=== PATIENT | male | born 1975 | race Caucasian/White ===

== ENCOUNTER 2017-06-30 10:54 | Observation (INO) | payer MEDICARE ==
[2017-06-30] MEDS ORDERED: Lactated Ringers 1,000 ML IV ONE ×4 (11:19→12:06)
[2017-06-30] MEDS ORDERED: Zofran 4 MG/2 ML VIAL IV ONE ×2 (11:26→12:09)
[2017-06-30] MEDS ORDERED: Sodium Chloride 0.9% 1000 ML 1,000 ML IV STA (11:26)
[2017-06-30] MEDS ORDERED: Pepcid 20 MG VIAL IV ONE ×2 (11:27→11:46)
[2017-06-30] MEDS ORDERED: SUBLIMAZE 100 MCG/2 ML IV ONE ×2 (11:27→12:09)
[2017-06-30] MEDS ORDERED: Zofran 4 MG/2 ML VIAL ONE ×2 (11:34→12:18)
[2017-06-30 11:35] LABS: BASOPHIL % 0.2 % (0.0-0.4); Basophil (Absolute #) 0.04 (0-0.4); Eosinophil % 1.2 % (0.00-5.0); Eosinophil (Absolute #) 0.19 (0-0.5); Granulocyte Absolute (ANC) 12.14 (1.4-6.9); Granulocytes % 74.2 % (36.0-66.0); Hemoglobin 15.9 gm/dl (12.5-18.0); Lymphocytes % 15.9 % (24.0-44.0); Mean Corpuscular Hemoglobin 30.5 pg (26-32); Mean Corpuscular Hgb Concent. 33.1 g/dl (32-36); Mean Platelet Volume 10.6 fl (6-9.5); Monocyte (Absolute #) 1.39 (0.0-1.3); Monocytes % 8.5 % (0.0-12.0); Platelet Count 222 K/mm3 (150-450); Red Blood Count 5.22 M/mm3 (4.1-5.6); Red Cell Distribution Width 12.6 % (11.5-14.0); White Blood Count 16.4 K/mm3 (4.0-10.5)
[2017-06-30] MEDS ORDERED: SUBLIMAZE 100 MCG/2 ML ONE ×2 (11:35→12:18)
[2017-06-30 11:41] LABS: Lactic Acid 2.2 (0.4-2.0)
[2017-06-30] MEDS ORDERED: Sodium Chloride 0.9% 1000 ML 1,000 ML ONE (11:46)
--- NOTE | 2017-06-30 12:05 | ERPHSYRPT ---
- History of Present Illness Time Seen by Provider: 06/30/17 11:11 Source: patient, family (girlfriend) Patient Subjective Stated Complaint: abd pain and vomitting. Triage Nursing Assessment: to er c/o lower abd pain vomitting and chills pt arrives diaphoretic weak and shaking. pt arousable and oriented x 3 though very fatiqued. pt has tenderness noted to right lq Physician History: CC: vomiting Hx: 42 y/o patient with prior appendectomy and bipolar disorder for which he sees a psychiatrist but refuses to take medications. He reports brief right testicle pain a few weeks ago which resolved. No injury. 2 days ago had right testicle pain, severe, radiating to his abdomen. He has vomiting since yesterday. Pain and vomiting is severe. No fever. Sweating. No diarrhea. Normal urination, no penile discharge. No back pain. Takes marijuana but denies other drug use. Vomiting is severe. Timing/Duration: day(s) (2) Severity: severe - Review of Systems Constitutional: Malaise, Weakness, No Fever, No Chills Eyes: No Symptoms Ears, Nose, & Throat: No Symptoms Respiratory: No Cough, No Dyspnea Cardiac: No Chest Pain Abdominal/Gastrointestinal: Abdominal Pain, Nausea, Vomiting, No Diarrhea Genitourinary Symptoms: Testicle Pain (right), No Dysuria Musculoskeletal: No Back Pain Skin: Other (sweating), No Rash Neurological: No Headache All Other Systems: Reviewed and Negative - Past Medical History Pertinent Past Medical History: Yes Psycho-Social History: Bipolar Other Medical History: bipolar - Past Surgical History Past Surgical History: Yes Gastrointestinal: Appendectomy - Social History Smoking Status: Never smoker Drug Use: marijuana - Nursing Vital Signs Nursing Vital Signs: Initial Vital Signs Temperature 96.0 F 06/30/17 11:13 Pulse Rate 56 L 06/30/17 11:13 Respiratory Rate 14 06/30/17 11:13 Blood Pressure 138/93 06/30/17 11:13 O2 Sat by Pulse Oximetry 99 06/30/17 11:13 Pain Scale Pain Intensity 0 - Physical Exam General Appearance: alert, other (diaphoretic, uncomfortable, vomiting, ill appearing) Eye Exam: PERRL/EOMI Ears, Nose, Throat Exam: normal ENT inspection, moist mucous membranes Neck Exam: normal inspection, non-tender, supple, No meningismus Respiratory Exam: normal breath sounds Cardiovascular Exam: regular rate/rhythm, bradycardia Gastrointestinal/Abdomen Exam: soft, tenderness (diffuse lower, nondistended), guarding Male Genitalia Exam: testicular tenderness (right), other (no discharge, no hernia palpable), No penile discharge Extremity Exam: normal inspection, normal range of motion Neurologic Exam: alert, oriented x 3, cooperative, director operations broadcast II-XII nml as tested, sensation nml, No motor deficits Skin Exam: other (cool and dipahoretic) SpO2 Interpretation: normal SpO2: 99 Oxygen Delivery: Room Air - Course Nursing assessment & vital signs reviewed: Yes EKG Interpreted by Me: RATE (56), Sinus Raheel (with sinus arryhtmia), NORMAL AXIS, NORMAL INTERVALS (QTc 431), Right Bundle Branch Block - CT Exams abd/pelvis CT Interpretation: Tele-radiologist Report (liver and right renal cysts, no inguinal hernia, no acute abdominal pathology.) - Radiology Ultrasound Exam scrotal Ultrasound: tele radiology report (no torsion, inguinal right hernia with loop of bowel in right scrotum) Ordered Tests: Active Orders 24 hr Category Date Time Status Clean Catch Urine Specimen STAT Care 06/30/17 11:26 Active EKG-ER Only STAT Care 06/30/17 11:26 Active Gastric Tube Insertion STAT Care 06/30/17 12:51 Active IV Insertion STAT Care 06/30/17 11:26 Active NPO (ED) STAT Care 06/30/17 11:26 Active ABDOMEN AND PELVIS W CONTRAST [CT] Stat Exams 06/30/17 11:26 Completed TESTICLE [US] Stat Exams 06/30/17 11:47 Completed BLOOD CULTURE Stat Lab 06/30/17 11:45 Received CBC W DIFF Stat Lab 06/30/17 11:20 Completed CMP Stat Lab 06/30/17 11:20 Completed LIPASE Stat Lab 06/30/17 11:20 Completed Lactic Acid Stat Lab 06/30/17 11:38 Completed Lactic Acid Stat Lab 06/30/17 13:40 Ordered UA W/RFX UR CULTURE Stat Lab 06/30/17 13:45 Received Urine Triage Profile Stat Lab 06/30/17 13:45 Received Medication Summary Generic Name Dose Route Start Last Admin Trade Name Freq PRN Reason Stop Dose Admin Lactated Ringer's 1,000 mls @ 100 mls/hr 06/30/17 12:30 Lactated Ringers IV 07/30/17 12:29 .Q10H SANTA Discontinued Medications Generic Name Dose Route Start Last Admin Trade Name Raymond MENDEZ Reason Stop Dose Admin Famotidine 20 mg 06/30/17 11:27 06/30/17 11:48 Pepcid 20 Mg Vial IV 06/30/17 11:28 20 mg STAT ONE Administration Famotidine Confirm 06/30/17 11:46 Pepcid 20 Mg Vial Administered 06/30/17 11:47 Dose 20 mg IV .STK-MED ONE Fentanyl Citrate 50 mcg 06/30/17 11:27 06/30/17 11:42 Sublimaze 100 Mcg/2 Ml IV 06/30/17 11:28 50 mcg STAT ONE Administration Fentanyl Citrate Confirm 06/30/17 11:35 Sublimaze 100 Mcg/2 Ml Administered 06/30/17 11:36 Dose 100 mcg .ROUTE .STK-MED ONE Fentanyl Citrate 50 mcg 06/30/17 12:09 06/30/17 12:20 Sublimaze 100 Mcg/2 Ml IV 06/30/17 12:10 50 mcg STAT ONE Administration Fentanyl Citrate Confirm 06/30/17 12:18 Sublimaze 100 Mcg/2 Ml Administered 06/30/17 12:19 Dose 100 mcg .ROUTE .STK-MED ONE Haloperidol Lactate 5 mg 06/30/17 13:30 06/30/17 13:47 Haldol 5 Mg IM 06/30/17 13:31 5 mg STAT ONE Administration Haloperidol Lactate Confirm 06/30/17 13:46 Haldol 5 Mg Administered 06/30/17 13:47 Dose 5 mg .ROUTE .STK-MED ONE Lactated Ringer's Confirm 06/30/17 11:19 Lactated Ringers Administered 06/30/17 11:20 Dose 1,000 mls @ ud IV .STK-MED ONE Lactated Ringer's Confirm 06/30/17 11:20 Lactated Ringers Administered 06/30/17 11:21 Dose 1,000 mls @ ud IV .STK-MED ONE Lactated Ringer's 1,000 mls @ 999 mls/hr 06/30/17 11:27 Lactated Ringers IV 06/30/17 12:27 .Q1H1M ONE Sodium Chloride 1,000 mls @ 999 mls/hr 06/30/17 11:26 06/30/17 11:48 Sodium Chloride 0.9% 1000 Ml IV 06/30/17 12:26 999 mls/hr .Q1H1M STA Administration Sodium Chloride Confirm 06/30/17 11:46 Sodium Chloride 0.9% 1000 Ml Administered 06/30/17 11:47 Dose 1,000 mls @ ud .ROUTE .STK-MED ONE Ondansetron HCl 4 mg 06/30/17 11:26 06/30/17 11:42 Zofran 4 Mg/2 Ml Vial IV 06/30/17 11:27 4 mg STAT ONE Administration Ondansetron HCl Confirm 06/30/17 11:34 Zofran 4 Mg/2 Ml Vial Administered 06/30/17 11:35 Dose 4 mg .ROUTE .STK-MED ONE Ondansetron HCl 4 mg 06/30/17 12:09 06/30/17 12:20 Zofran 4 Mg/2 Ml Vial IV 06/30/17 12:10 4 mg STAT ONE Administration Ondansetron HCl Confirm 06/30/17 12:18 Zofran 4 Mg/2 Ml Vial Administered 06/30/17 12:19 Dose 4 mg .ROUTE .STK-MED ONE Lab/Rad Data: Laboratory Result Diagrams 06/30/17 11:20 06/30/17 11:20 Laboratory Results 06/30/17 06/30/17 06/30/17 Range/Units 11:38 11:20 11:20 WBC 16.4 H (4.0-10.5) K/mm3 RBC 5.22 (4.1-5.6) M/mm3 Hgb 15.9 (12.5-18.0) gm/dl Hct 48.0 (42-50) % MCV 92.0 (78-100) fl MCH 30.5 (26-32) pg MCHC 33.1 (32-36) g/dl RDW 12.6 (11.5-14.0) % Plt Count 222 (150-450) K/mm3 MPV 10.6 H (6-9.5) fl Gran % 74.2 H (36.0-66.0) % Lymphocytes % 15.9 L (24.0-44.0) % Monocytes % 8.5 (0.0-12.0) % Eosinophils % 1.2 (0.00-5.0) % Basophils % 0.2 (0.0-0.4) % Basophils # 0.04 (0-0.4) Sodium 141 (136-145) mEq/L Potassium 4.7 (3.5-5.1) mEq/L Chloride 104 (98-107) mEq/L Carbon Dioxide 24.8 (21-32) mEq/L Anion Gap 17.0 H (5-15) MEQ/L BUN 12 (9-20) mg/dL Creatinine 1.22 (0.55-1.30) mg/dl Estimated GFR > 60 ML/MIN Glucose 178 H (70-110) MG/DL Lactic Acid 2.2 H (0.4-2.0) Calcium 9.6 (8.5-10.1) mg/dL Total Bilirubin 0.50 (0.2-1.0) mg/dL AST 22 (15-37) U/L ALT 16 (12-78) U/L Alkaline Phosphatase 69 (46-116) U/L Serum Total Protein 8.5 H (6.4-8.2) gm/dL Albumin 4.9 (3.4-5.0) g/dL Lipase 86 (73-393) U/L - Progress Progress Note: 06/30/17 12:05 right AC IV started but had pulsatile flow so removed and pressure held. Good pulse thereafter. 18 ga PIV X 2 placed left arm with sono guidance. 06/30/17 12:46 LEft arm IV infiltrated. Right EJ placed 18 ga[address] En [address]. Suspect incarcerated hernia with bowel obstruction. Called Dr Jasmine office to obtain surgical consultation. 06/30/17 12:[address] Yomi Holley. He will be available. Advised NG tube and will call when CT competed. 06/30/17 13:25 Pt reports 15 or so prior episodes of vomiting like this. He has smoked marijuana for quite some time. Craves hot showers when these spells occur. He has been admitted in the past and no etiology identified. 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 Await CT. 06/30/17 13:[address] castro[address] CT reassuring. He will see for consult. Will speak to Dr Cruz for admission as he still has vomiting. 06/30/17 13:[address] Yaa Cruz electronic design engineer and will place in obs for IVF, further evaluation and care. 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 Pt was advised the treatment is completely stop marijuana. Discussed with Dr.: Harmony Will see patient in: hospital (observation) Counseled pt/family regarding: lab results, diagnosis, need for follow-up, rad results - Departure Time of Disposition: 13:56 Departure Disposition: Observation (Tele) Clinical Impression: Cyclical vomiting syndrome, Cannabis hyperemesis syndrome concurrent with and due to cannabis abuse Condition: Fair Critical Care Time: Yes Critical Care Time(excluding separately billable procedures): 30-74 minutes Referrals: DOCTOR,NO FAMILY [Primary Care Provider] -
[2017-06-30 12:15] LABS: ALBUMIN 4.9 g/dL (3.4-5.0); ALKALINE PHOSPHATASE 69 U/L (46-116); BLOOD UREA NITROGEN 12 mg/dL (9-20); CHLORIDE 104 mEq/L (98-107); Calcium 9.6 mg/dL (8.5-10.1); Carbon Dioxide 24.8 mEq/L (21-32); Creatinine 1 1.22 mg/dl (0.55-1.30); EST GLOMERULAR FILTRATION RATE > 60 ML/MIN; Glucose 178 MG/DL (70-110); LIPASE 86 U/L (73-393); Potassium 4.7 mEq/L (3.5-5.1); SGOT/AST 22 U/L (15-37); SGPT/ALT 16 U/L (12-78); SODIUM 141 mEq/L (136-145); Total Protein 8.5 gm/dL (6.4-8.2)
[2017-06-30] MEDS ORDERED: Lactated Ringers 1,000 ML IV SCH (12:30)
--- NOTE | 2017-06-30 12:41 | XRAY ---
Indication: Right testicular pain. Two-dimensional testicular sonogram performed. Comparison: None Both testicles homogeneous in echogenicity with normal color perfusion. The right testicle measures 5.4 x 4.3 x 2.2 cm and the left measures 5.6 x 3.5 x 3.0 cm. Right epididymis sonographically unremarkable. Left epididymis not imaged due to patient's "critical condition." Loop of bowel in the right scrotum. No other extratesticular mass or hydrocele. Impression: 1. Right inguinal hernia with loop of bowel in the right scrotum. 2. Left and right testicles negative for torsion or suspicious intratesticular mass.
--- NOTE | 2017-06-30 13:25 | XRAY ---
Indication: Lower abdominal pain. Vomiting. Possible hernia. Multiple contiguous axial images obtained through the abdomen and pelvis using 80 cc Isovue 370 contrast only. Comparison: None Lung bases demonstrates mild bibasilar dependent atelectasis. No infiltrate or effusion. Heart is not enlarged. Small hiatal hernia. Noncontrasted stomach and bowel loops appear nonobstructed. Previous reported appendectomy. No free fluid/air. 1.5 cm left lobe hepatic cyst. Smaller 6 mm right lobe peripheral hepatic cyst. Both kidneys enhance and excrete. 7 mm right renal cortical cyst. Remaining liver, gallbladder, pancreas, spleen, adrenal glands, kidneys, ureters, and bladder appear unremarkable. Minimal iliac artery calcifications bilaterally. No AAA or pathologic retroperitoneal lymphadenopathy. Osseous structures intact. No ventral or inguinal hernias. Impression: 1. Negative for ventral/inguinal hernias. 2. Hepatic and right renal cysts. 3. Small hiatal hernia. 4. No acute intra-abdominal/pelvic abnormalities. CT DI 17.30
[2017-06-30] MEDS ORDERED: Haldol 5 MG IM ONE (13:30)
[2017-06-30] MEDS ORDERED: Haldol 5 MG ONE (13:46)
[2017-06-30 14:05] LABS: Amphetamine,Urine NEG. (NEGATIVE); Barbiturate,Urine NEG. (NEGATIVE); Benzodiazepine,Urine NEG. (NEGATIVE); Cocaine,Urine NEG. (NEGATIVE); Methadone,Urine NEG. (NEGATIVE); Opiate,Urine NEG. (NEGATIVE); PCP,Urine NEG. (NEGATIVE); THC,Urine POS. (NEGATIVE)
[2017-06-30 14:06] LABS: Appearance CLEAR (CLEAR); Glucose 250 mg/dL (NEGATIVE); Leukocyte Esterase NEGATIVE (NEGATIVE); Nitrite NEGATIVE (NEGATIVE); Protein,Urine Dip TRACE (Negative); Specific Gravity 1.015 (1.005-1.025)
[2017-06-30 14:07] LABS: Bilirubin NEGATIVE (NEGATIVE); Blood NEGATIVE Ery/ul (0-5); Ketones LARGE-80 (NEGATIVE); Urobilinogen NORMAL mg/dL (0-1)
[2017-06-30 14:11] LABS: Bacteria MODERATE /HPF (NEGATIVE)
[2017-06-30] MEDS: D5W/0.45NS W/ 20mEq KCl 1000 ML 1,000 ML IV SCH (19:55)
[2017-06-30] MEDS ORDERED: Phenergan 25 MG INJ IV PRN (20:39)
[2017-06-30] MEDS ORDERED: BENADRYL 50 MG/ML IV PRN (21:08)
--- NOTE | 2017-06-30 21:36 | PCM.HP ---
History of Present Illness - Chief Complaint Chief Complaint: cannabis hyperemesis syndrome Date: 06/30/17 History of Present Illness: is a 42 year old male. who has been hospitalized he thinks 15 times with negative previous work up for severe vomiting and dehydration and developed this again 2 days ago. He has been unable to stop vomiting or keep anything down. He dues use marijuana and when this happens he does crave taking hot showers. He currently is very nauseated and diaphoretic but no significant abdominal pain currently. - Review of Systems Constitutional: Fatigue, Lethargy, No Fever, No Chills Eyes: No Symptoms Ears, Nose, & Throat: No Symptoms Respiratory: No Cough, No Short Of Breath Cardiac: No Chest Pain, No Edema, No Syncope Abdominal/Gastrointestinal: Abdominal Pain, Nausea, Vomiting, No Diarrhea Genitourinary Symptoms: No Dysuria Musculoskeletal: No Back Pain, No Neck Pain Skin: No Rash Neurological: No Dizziness, No Focal Weakness, No Sensory Changes Psychological: No Symptoms Endocrine: No Symptoms Hematologic/Lymphatic: No Symptoms Immunological/Allergic: No Symptoms Medications & Allergies Home Medications: Home Medication List No Reportable Medications [No Reported Medications] 06/30/17 [History Confirmed 06/30/17] - Past Medical History Past Medical History: Yes Neurological History: No Pertinent History ENT History: No Pertinent History Cardiac History: No Pertinent History Respiratory History: No Pertinent History Endocrine Medical History: No Pertinent History Musculoskelatal History: No Pertinent History GI Medical History: No Pertinent History History: No Pertinent History Pyscho-Social History: Bipolar Comment: bipolar - Past Surgical History Past Surgical History: Yes Neuro Surgical History: No Pertinent History Cardiac History: No Pertinent History Respiratory Surgery: No Pertinent History GI Surgical History: Appendectomy Genitourinary Surgical Hx: No Pertinent History Musculskeletal Surgical Hx: No Pertinent History Male Surgical History: No Pertinent History - Social History Smoking Status: Current some day smoker Alcohol: None Drug Use: marijuana - Physical Exam Vital Signs: Vital Signs - 24 hr Temp Pulse Resp BP Pulse Ox 06/30/17 20:00 98.5 F 86 22 156/87 94 L 06/30/17 15:54 97.7 F 57 L 18 147/74 98 06/30/17 15:45 97.7 F 57 L 16 147/74 98 06/30/17 15:24 57 L 16 130/54 98 06/30/17 13:57 99 06/30/17 13:31 73 16 149/87 98 06/30/17 12:30 60 18 138/98 96 06/30/17 11:13 96.0 F 56 L 14 138/93 99 General Appearance: mild distress, alert, other (diaphoretic) Neurologic Exam: alert, oriented x 3, cooperative, normal mood/affect, nml cerebellar function, nml station & gait, sensation nml, No motor deficits Eye Exam: PERRL/EOMI, eyes nml inspection Ears, Nose, Throat Exam: normal ENT inspection, TMs normal, pharynx normal, moist mucous membranes Neck Exam: normal inspection, non-tender, supple, full range of motion Respiratory Exam: normal breath sounds, lungs clear, No respiratory distress Cardiovascular Exam: normal heart sounds, normal peripheral pulses, bradycardia Gastrointestinal/Abdomen Exam: soft, No normal bowel sounds (hypoactive), No tenderness, No mass Back Exam: normal inspection, normal range of motion, No CVA tenderness, No vertebral tenderness Extremity Exam: normal inspection, normal range of motion, pelvis stable Skin Exam: normal color, warm, diaphoresis, No rash Lymphatic Exam: No adenopathy Assessment/Plan (1) Cannabis hyperemesis syndrome concurrent with and due to cannabis abuse Current Visit: Yes Status: Acute Assessment & Plan: will continue supportive care with iv fluids trial of phenergan and benadryl prn advance diet as tolerated Code(s): F12.188 - CANNABIS ABUSE WITH OTHER CANNABIS-INDUCED DISORDER (2) Dehydration Current Visit: Yes Status: Acute Code(s): E86.0 - DEHYDRATION
[2017-07-01] MEDS: D5W/0.45NS W/ 20mEq KCl 1000 ML 1,000 ML IV SCH (03:10)
[2017-07-01 06:15] LABS: BASOPHIL % 0.1 % (0.0-0.4); Basophil (Absolute #) 0.02 (0-0.4); Eosinophil % 0.1 % (0.00-5.0); Eosinophil (Absolute #) 0.01 (0-0.5); Granulocyte Absolute (ANC) 11.58 (1.4-6.9); Granulocytes % 81.1 % (36.0-66.0); Hematocrit 41.7 % (42-50); Hemoglobin 14.2 gm/dl (12.5-18.0); Lymphocyte (Absolute #) 1.46 (1.0-4.6); Lymphocytes % 10.2 % (24.0-44.0); Mean Cell Volume 89.5 fl (78-100); Mean Corpuscular Hemoglobin 30.5 pg (26-32); Mean Corpuscular Hgb Concent. 34.1 g/dl (32-36); Mean Platelet Volume 11.1 fl (6-9.5); Monocyte (Absolute #) 1.21 (0.0-1.3); Monocytes % 8.5 % (0.0-12.0); Platelet Count 181 K/mm3 (150-450); Red Blood Count 4.66 M/mm3 (4.1-5.6); Red Cell Distribution Width 12.2 % (11.5-14.0); White Blood Count 14.3 K/mm3 (4.0-10.5)
[2017-07-01 06:54] LABS: ALBUMIN 4.2 g/dL (3.4-5.0); ALKALINE PHOSPHATASE 62 U/L (46-116); ANION GAP 13.1 MEQ/L (5-15); BLOOD UREA NITROGEN 6 mg/dL (9-20); CHLORIDE 105 mEq/L (98-107); Carbon Dioxide 25.3 mEq/L (21-32); Creatinine 1 0.86 mg/dl (0.55-1.30); EST GLOMERULAR FILTRATION RATE > 60 ML/MIN; Glucose 145 MG/DL (70-110); Potassium 3.8 mEq/L (3.5-5.1); SGOT/AST 26 U/L (15-37); SGPT/ALT 18 U/L (12-78); SODIUM 140 mEq/L (136-145); Total Protein 7.6 gm/dL (6.4-8.2)
[2017-07-01 07:33] VITALS: BP 133/84; PULSE 78; O2SAT 98
--- NOTE | 2017-07-01 10:27 | PCM.DS ---
Discharge Summary Date of Admission: 06/30/17 15:35 Date of Discharge: 07/01/2017 Admitting Physician: ZINA RODRIGUEZ Primary Care Provider: NO FAMILY DOCTOR Allergies Allergies No Known Drug Allergies Allergy (Verified 06/30/17 23:49) Hospital Summary - Hospital Course Hospital Course: Mr. Nicholas presented with severe abdominal pain vomiting and dehydration with diaphoresis and bradycardia. Initially an ultrasound of the testicles was felt to show bowel loop but CT did not show any hernia. He was evaluated by surgery and determined not surgical candidate. He has had about 15 episodes similar to this in the past and when it happens he craves taking a hot shower and did this the day prior to admission until he ran out of water. He does admit to THC use but not on the day of presentation. He was admitted for presumed cannibis hyperemesis syndrome initially given im haldol then changed over to phenergan and benadryl iv and had iv fluids. He improved overnight and was tolerating po on hospital day 1 with no pain and just mild nausea. He was discharged to home with instructions to not smoke marijuana. - Vitals & Intake/Output Vital Signs: Vital Signs Temperature 98.9 F 07/01/17 07:32 Pulse Rate 78 07/01/17 07:32 Respiratory Rate 18 07/01/17 07:32 Blood Pressure 133/84 07/01/17 07:32 O2 Sat by Pulse Oximetry 98 07/01/17 07:32 Intake & Output: Intake & Output 06/28/17 06/29/17 06/30/17 07/01/17 11:59 11:59 11:59 11:59 Intake Total 1024 Output Total 250 Balance 774 Weight 78 kg - Lab Result Diagrams: 07/01/17 05:40 07/01/17 05:40 Lab Results-Last 24 Hrs: Lab Results-Last 24 Hours 07/01/17 07/01/17 Range/Units 05:40 05:40 WBC 14.3 H (4.0-10.5) K/mm3 RBC 4.66 (4.1-5.6) M/mm3 Hgb 14.2 (12.5-18.0) gm/dl Hct 41.7 L (42-50) % MCV 89.5 (78-100) fl MCH 30.5 (26-32) pg MCHC 34.1 (32-36) g/dl RDW 12.2 (11.5-14.0) % Plt Count 181 (150-450) K/mm3 MPV 11.1 H (6-9.5) fl Gran % 81.1 H (36.0-66.0) % Lymphocytes % 10.2 L (24.0-44.0) % Monocytes % 8.5 (0.0-12.0) % Eosinophils % 0.1 (0.00-5.0) % Basophils % 0.1 (0.0-0.4) % Basophils # 0.02 (0-0.4) Sodium 140 (136-145) mEq/L Potassium 3.8 (3.5-5.1) mEq/L Chloride 105 (98-107) mEq/L Carbon Dioxide 25.3 (21-32) mEq/L Anion Gap 13.1 (5-15) MEQ/L BUN 6 L (9-20) mg/dL Creatinine 0.86 (0.55-1.30) mg/dl Estimated GFR > 60 ML/MIN Glucose 145 H (70-110) MG/DL Calcium 9.0 (8.5-10.1) mg/dL Total Bilirubin 0.40 (0.2-1.0) mg/dL AST 26 (15-37) U/L ALT 18 (12-78) U/L Alkaline Phosphatase 62 (46-116) U/L Serum Total Protein 7.6 (6.4-8.2) gm/dL Albumin 4.2 (3.4-5.0) g/dL Discharge Exam General Appearance: no apparent distress, alert Neurologic Exam: alert, oriented x 3, cooperative, normal mood/affect, nml cerebellar function, sensation nml, No motor deficits Skin Exam: normal color, warm, dry Eye Exam: PERRL, EOMI, eyes nml inspection Ears, Nose, Throat Exam: normal ENT inspection, pharynx normal, moist mucous membranes Neck Exam: normal inspection, non-tender, supple, full range of motion Respiratory Exam: normal breath sounds, lungs clear, No respiratory distress Cardiovascular Exam: regular rate/rhythm, normal heart sounds Gastrointestinal/Abdomen Exam: soft, No tenderness, No mass Extremity Exam: normal inspection, normal range of motion Back Exam: normal inspection, normal range of motion, No CVA tenderness, No vertebral tenderness Male Genitalia Exam: deferred Rectal Exam: deferred Final Diagnosis/Problem List - Final Discharge Diagnosis/Problem (1) Cannabis hyperemesis syndrome concurrent with and due to cannabis abuse Status: Acute (2) Dehydration Status: Acute - Discharge Discharge Date: 07/01/17 Disposition: Home, Self-Care Condition: Fair Prescriptions: New Ondansetron ODT 4 MG [Zofran Odt 4 mg] 4 mg PO Q4H PRN #20 tab.rapdis PRN Reason: Nausea Instructions: Marijuana Use and Addiction (DC) Follow up with: DOCTOR,NO FAMILY [Primary Care Provider] - 1 Week
--- NOTE | 2017-07-03 09:32 | CONS ---
CONSULT DATE: 06/30/2017 HISTORY: A 42 year-old gentleman came in with significant nausea and vomiting. The emergency room physician said he seemed quite ill. He had an ultrasound show testicular flow with question of loop of bowel down towards the scrotum or inguinal canal. CT scan was ordered. I was asked to see the patient. On the way down there the CT did not show any obvious bowel obstruction or inguinal hernia requiring operation at this point. Discussed with the patient that he had these intermittent episodes in the past up to 15 times. After being hydrated he was feeling better at this point. He had some vague right-sided abdominal pain. He is not having any bulge down in his inguinal or scrotal area at this time. PAST MEDICAL HISTORY: He denied any chronic illnesses. PHYSICAL EXAMINATION: Appendectomy in the past. HOME MEDICATIONS: None on a regular basis. ALLERGIES: NKDA. FAMILY HISTORY: Negative for inflammatory bowel disease or Crohn's disease. SOCIAL HISTORY: He denies smoking cigarettes. He denies alcohol abuse. He smokes marijuana on occasion. REVIEW OF SYSTEMS: Twelve systems reviewed per admission assessment. No chest pain or palpitations other systems negative or noncontributory as above and per preadmission questionnaire. PHYSICAL EXAMINATION: ABDOMEN: Soft. He has some mild tenderness right abdomen. Bowel sounds stable. Healed appendectomy transverse incision in the right lower quadrant. No palpable hernia at this point. GENERAL: Currently no acute distress. HEENT: Sclera nonicteric. SKIN: Multiple tattoos. NECK: No JVD. CHEST: Equal excursion, nonlabored breathing. CVS: Rhythm and pulse. EXTREMITIES: No edema. NEURO: Alert, moving extremities grossly symmetrically. LAB DATA AND TESTS: Labs reviewed. CT scan reviewed with radiologist. Again no evidence of bowel obstruction, no free air or collection, no evidence of inguinal hernia on CT scan. IMPRESSION: Nausea, vomiting and some vague abdominal pain unclear etiology. He definitively does not have any current incarcerated or obstructing hernia at this time. The emergency room physician questioned whether he had hyperemesis syndrome as he had recurrent problems with this in the past possible etiology could include gastroenteritis versus viral syndrome, inflammatory bowel disease or even a variation of biliary colic although his symptoms seem to be lower initially when he was having discomfort. The significant other at the bedside reported he did have HIDA scan several years ago that showed ejection fraction at 30%. We do not have those reports available at this time. Either way no emergent general surgical intervention necessary at this time. Continue IV hydration and medical management. No acute surgery necessary at this time. Admitted to medical service and improves can be released. If he has recurrent symptoms could consider gallbladder work up as an outpatient. Otherwise no emergent surgical intervention necessary. Continue medical management at this time. I will call the floor and check on the patient tomorrow but at this time he does not need any emergent surgical intervention, continue medical management at this time.
== END 2017-07-01 10:54 | disposition home or self-care (01) ==
LOC: ED 10:54 → MED SURG 15:35
PROVIDERS: ADMIT Family Medicine; ATTEND Family Medicine
DX: F12.188 Cannabis abuse with other cannabis-induced disorder (principal); F19.20 Other psychoactive substance dependence, uncomplicated; E86.0 Dehydration; R10.9 Unspecified abdominal pain; F31.9 Bipolar disorder, unspecified; Z72.0 Tobacco use
CPT/HCPCS: 36000; 36415; 74177; 76870; 80053; 80307; 81000; 83605; 83690; 85025; 87040; 87086; 93005; 93268; 96360; 96361; 96372; 96374; 96375; 96376; 99291; G0378; J1630; J2405; J2550; J3010

== ENCOUNTER 2019-10-28 04:31 | Observation (INO) | payer MEDICARE ==
[2019-10-28] MEDS ORDERED: Sodium Chloride 0.9% 1000 ML 1,000 ML IV STA (04:58)
[2019-10-28] MEDS ORDERED: Zofran 4 MG/2 ML VIAL IV ONE (04:58)
[2019-10-28] MEDS ORDERED: SUBLIMAZE 250 MCG/5 ML IV ONE (05:00)
[2019-10-28] MEDS ORDERED: Zofran 4 MG/2 ML VIAL ONE (05:07)
[2019-10-28] MEDS ORDERED: SUBLIMAZE 250 MCG/5 ML ONE (05:08)
[2019-10-28] MEDS ORDERED: Sodium Chloride 0.9% 1000 ML 1,000 ML ONE ×2 (05:08)
[2019-10-28 05:13] LABS: Absolute Neutrophil Ct (ANC) 11.12 (1.4-6.9); BASOPHIL % 0.4 % (0.0-0.4); Basophil (Absolute #) 0.06 (0-0.4); Eosinophil % 1.1 % (0.00-5.0); Eosinophil (Absolute #) 0.15 (0-0.5); Hematocrit 44.1 % (42-50); Lymphocyte (Absolute #) 1.89 (1.0-4.6); Lymphocytes % 13.3 % (24.0-44.0); Mean Cell Volume 92.8 fl (78-100); Mean Corpuscular Hemoglobin 31.6 pg (26-32); Mean Platelet Volume 10.7 fl (7.5-11.0); Monocyte (Absolute #) 1.01 (0.0-1.3); Monocytes % 7.1 % (0.0-12.0); Neutrophil % 78.1 % (36.0-66.0); Platelet Count 208 K/mm3 (150-450); Red Blood Count 4.75 M/mm3 (4.1-5.6); Red Cell Distribution Width 12.6 % (11.5-14.0); White Blood Count 14.2 K/mm3 (4.0-10.5)
[2019-10-28 05:17] LABS: ALBUMIN 4.7 g/dL (3.5-5.0); ALKALINE PHOSPHATASE 77 U/L (38-126); AMYLASE 100 U/L (30-110); ANION GAP 11.2 MEQ/L (5-15); BLOOD UREA NITROGEN 11 mg/dL (9-20); CHLORIDE 111 mmol/L (98-107); Calcium 9.5 mg/dL (8.4-10.2); Carbon Dioxide 24 mmol/L (22-30); Creatinine 1 0.84 mg/dL (0.66-1.25); Glucose 169 mg/dL (74-106); LIPASE 78 U/L (23-300); Potassium 4.3 mmol/L (3.5-5.1); SGOT/AST 28 U/L (17-59); SGPT/ALT 14 U/L (0-50); SODIUM 141 mmol/L (137-145)
[2019-10-28] MEDS ORDERED: MORPHINE SULFATE 4 MG INJ IV ONE (05:55)
--- NOTE | 2019-10-28 05:55 | ERPHSYRPT ---
- History of Present Illness Time Seen by Provider: 10/28/19 04:46 Historian: patient, family Exam Limitations: no limitations Physician History: 44 years old male presented in the ER with sudden onset upper abdominal pain around 11 AM which woke him up from sleep associated with multiple episodes of nonprojectile, nonbilious vomiting with no hematemesis. Patient is d iaphoretic/sweating with heart rate in 40s, feeling very sleepy. Patient reports severe sharp shooting pain in the upper abdomen with no radiation, aggravated with movements, palpation and vomiting no relieving factors. Also reports mild shortness of breath and some chest discomfort because of vomiting. Denies any fever or chills. No diarrhea. Timing/Duration: hour(s) (5), sudden, worse Activities at Onset: sleep Quality: sharpness, stabbing Abdominal Pain Onset Location: RUQ, LUQ, epigastric, periumbilical Pain Radiation: no radiation Severity of Pain-Max: severe Severity of Pain-Current: severe Modifying Factors: Improves With: movement, palpation Associated Symptoms: nausea, vomiting, No fever/chills Previous symptoms: no prior history Allergies/Adverse Reactions: No Known Drug Allergies Allergy (Verified 06/30/17 23:49) Travel Risk - International Travel Have you traveled outside of the country in past 3 weeks: No If Yes, where;: N - Coronavirus Screening Are you exhibiting any of the following symptoms?: Yes Close contact with a COVID-19 positive Pt in past 14-21 Days: No - Review of Systems Constitutional: Fatigue, Lethargy Eyes: No Symptoms Ears, Nose, & Throat: No Symptoms Respiratory: No Symptoms Cardiac: No Symptoms Abdominal/Gastrointestinal: Abdominal Pain, Nausea, Vomiting Genitourinary Symptoms: No Symptoms Musculoskeletal: No Symptoms Skin: No Symptoms Neurological: No Symptoms Psychological: No Symptoms Endocrine: No Symptoms Hematologic/Lymphatic: No Symptoms Immunological/Allergic: No Symptoms - Past Medical History Pertinent Past Medical History: Yes Neurological History: No Pertinent History ENT History: No Pertinent History Cardiac History: No Pertinent History Respiratory History: No Pertinent History Endocrine Medical History: No Pertinent History Musculoskeletal History: No Pertinent History GI Medical History: No Pertinent History History: No Pertinent History Psycho-Social History: Bipolar Other Medical History: bipolar - Past Surgical History Past Surgical History: Yes Neuro Surgical History: No Pertinent History Cardiac: No Pertinent History Respiratory: No Pertinent History Gastrointestinal: Appendectomy Genitourinary: No Pertinent History Musculoskeletal: No Pertinent History Male Surgical History: No Pertinent History - Social History Smoking Status: Current some day smoker Drug Use: marijuana - Nursing Vital Signs Nursing Vital Signs: Initial Vital Signs Temperature 96 F 10/28/19 04:32 Pulse Rate 53 L 10/28/19 04:32 Respiratory Rate 16 10/28/19 04:32 Blood Pressure 133/84 10/28/19 04:32 O2 Sat by Pulse Oximetry 97 10/28/19 04:32 Pain Scale Pain Intensity 7 - Physical Exam General Appearance: moderate distress, alert Eye Exam: PERRL/EOMI, eyes nml inspection Ears, Nose, Throat Exam: normal ENT inspection, TMs normal, pharynx normal Neck Exam: normal inspection, non-tender, supple, full range of motion Respiratory Exam: normal breath sounds, lungs clear, No chest tenderness Cardiovascular Exam: normal heart sounds, bradycardia Gastrointestinal/Abdomen Exam: soft, tenderness, guarding (Her abdomen), No normal bowel sounds, No distention, No mass Back Exam: normal inspection, No CVA tenderness Extremity Exam: normal inspection Neurologic Exam: alert, oriented x 3, cooperative Skin Exam: normal color SpO2 Interpretation: normal O2 Delivery: Room Air - Course Nursing assessment & vital signs reviewed: Yes EKG Interpreted by Me: RATE, Sinus Raheel, NORMAL AXIS, NORMAL INTERVALS, Non- specific ST Changes Ordered Tests: Active Orders 24 hr Category Date Time Status EKG-ER Only STAT Care 10/28/19 04:58 Active IV Insertion STAT Care 10/28/19 04:58 Active NPO (ED) STAT Care 10/28/19 04:58 Active ABDOMEN AND PELVIS W CONTRAST [CT] Stat Exams 10/28/19 04:59 Taken CHEST WITH CONTRAST [CT] Stat Exams 10/28/19 05:01 Taken AMYLASE Stat Lab 10/28/19 04:58 Completed CBC W DIFF Stat Lab 10/28/19 04:58 Completed CMP Stat Lab 10/28/19 04:58 Completed LIPASE Stat Lab 10/28/19 04:58 Completed Lactic Acid Stat Lab 10/28/19 04:58 Completed TROPONIN Q3H Lab 10/28/19 05:00 Completed TROPONIN Q3H Lab 10/28/19 08:00 Ordered TROPONIN Q3H Lab 10/28/19 11:00 Ordered TROPONIN Q3H Lab 10/28/19 14:00 Ordered TROPONIN Q3H Lab 10/28/19 17:00 Ordered UA W/RFX UR CULTURE Stat Lab 10/28/19 04:59 Uncollected Urine Triage Profile Stat Lab 10/28/19 04:59 Uncollected Medication Summary Generic Name Dose Route Start Last Admin Trade Name Raymond PRN Reason Stop Dose Admin Piperacillin Sod/Tazobactam 100 mls @ 200 mls/hr 10/28/19 06:22 Sod 3.375 gm/ Sodium Chloride IV 10/28/19 06:51 STAT ONE Discontinued Medications Generic Name Dose Route Start Last Admin Trade Name Raymond PRN Reason Stop Dose Admin Fentanyl Citrate 50 mcg 10/28/19 05:00 10/28/19 05:11 Sublimaze 250 Mcg/5 Ml IV 10/28/19 05:01 50 mcg NOW ONE Administration Fentanyl Citrate Confirm 10/28/19 05:08 Sublimaze 250 Mcg/5 Ml Administered 10/28/19 05:09 Dose 250 mcg .ROUTE .STK-MED ONE Sodium Chloride 1,000 mls @ 999 mls/hr 10/28/19 04:58 10/28/19 05:09 Sodium Chloride 0.9% 1000 Ml IV 10/28/19 05:58 999 mls/hr .Q1H1M STA Administration Sodium Chloride Confirm 10/28/19 05:08 Sodium Chloride 0.9% 1000 Ml Administered 10/28/19 05:09 Dose 1,000 mls @ ud .ROUTE .STK-MED ONE Sodium Chloride Confirm 10/28/19 05:08 Sodium Chloride 0.9% 1000 Ml Administered 10/28/19 05:09 Dose 1,000 mls @ ud .ROUTE .STK-MED ONE Morphine Sulfate 4 mg 10/28/19 05:55 10/28/19 05:59 Morphine Sulfate 4 Mg Inj IV 10/28/19 05:56 4 mg STAT ONE Administration Morphine Sulfate Confirm 10/28/19 05:57 Morphine Sulfate 4 Mg Inj Administered 10/28/19 05:58 Dose 4 mg .ROUTE .STK-MED ONE Ondansetron HCl 4 mg 10/28/19 04:58 10/28/19 05:08 Zofran 4 Mg/2 Ml Vial IV 10/28/19 04:59 4 mg STAT ONE Administration Ondansetron HCl Confirm 10/28/19 05:07 Zofran 4 Mg/2 Ml Vial Administered 10/28/19 05:08 Dose 4 mg .ROUTE .STK-MED ONE Promethazine HCl 12.5 mg 10/28/19 06:17 Phenergan 25 Mg Inj IM 10/28/19 06:18 STAT ONE Promethazine HCl Confirm 10/28/19 06:20 Phenergan 25 Mg Inj Administered 10/28/19 06:21 Dose 25 mg .ROUTE .STK-MED ONE Lab/Rad Data: Laboratory Result Diagrams 10/28/19 04:58 10/28/19 04:58 Laboratory Results 10/28/19 10/28/19 10/28/19 Range/Units 05:00 04:58 04:58 WBC (4.0-10.5) K/mm3 RBC (4.1-5.6) M/mm3 Hgb (12.5-18.0) gm/dl Hct (42-50) % MCV (78-100) fl MCH (26-32) pg MCHC (32-36) g/dl RDW (11.5-14.0) % Plt Count (150-450) K/mm3 MPV (7.5-11.0) fl Gran % (36.0-66.0) % Eos # (Auto) (0-0.5) Absolute Lymphs (auto) (1.0-4.6) Absolute Monos (auto) (0.0-1.3) Lymphocytes % (24.0-44.0) % Monocytes % (0.0-12.0) % Eosinophils % (0.00-5.0) % Basophils % (0.0-0.4) % Absolute Granulocytes (1.4-6.9) Basophils # (0-0.4) Sodium 141 (137-145) mmol/L Potassium 4.3 (3.5-5.1) mmol/L Chloride 111 H (98-107) mmol/L Carbon Dioxide 24 (22-30) mmol/L Anion Gap 11.2 (5-15) MEQ/L BUN 11 (9-20) mg/dL Creatinine 0.84 (0.66-1.25) mg/dL Estimated GFR > 60.0 ML/MIN Glucose 169 H (74-106) mg/dL Lactic Acid 1.7 (0.4-2.0) Calcium 9.5 (8.4-10.2) mg/dL Total Bilirubin 0.50 (0.2-1.3) mg/dL AST 28 (17-59) U/L ALT 14 (0-50) U/L Alkaline Phosphatase 77 (38-126) U/L Troponin I < 0.012 (0.000-0.034) ng/mL Serum Total Protein 8.0 (6.3-8.2) g/dL Albumin 4.7 (3.5-5.0) g/dL Amylase 100 (30-110) U/L Lipase 78 (23-300) U/L 10/28/19 Range/Units 04:58 WBC 14.2 H (4.0-10.5) K/mm3 RBC 4.75 (4.1-5.6) M/mm3 Hgb 15.0 (12.5-18.0) gm/dl Hct 44.1 (42-50) % MCV 92.8 (78-100) fl MCH 31.6 (26-32) pg MCHC 34.0 (32-36) g/dl RDW 12.6 (11.5-14.0) % Plt Count 208 (150-450) K/mm3 MPV 10.7 (7.5-11.0) fl Gran % 78.1 H (36.0-66.0) % Eos # (Auto) 0.15 (0-0.5) Absolute Lymphs (auto) 1.89 (1.0-4.6) Absolute Monos (auto) 1.01 (0.0-1.3) Lymphocytes % 13.3 L (24.0-44.0) % Monocytes % 7.1 (0.0-12.0) % Eosinophils % 1.1 (0.00-5.0) % Basophils % 0.4 (0.0-0.4) % Absolute Granulocytes 11.12 H (1.4-6.9) Basophils # 0.06 (0-0.4) Sodium (137-145) mmol/L Potassium (3.5-5.1) mmol/L Chloride (98-107) mmol/L Carbon Dioxide (22-30) mmol/L Anion Gap (5-15) MEQ/L BUN (9-20) mg/dL Creatinine (0.66-1.25) mg/dL Estimated GFR ML/MIN Glucose (74-106) mg/dL Lactic Acid (0.4-2.0) Calcium (8.4-10.2) mg/dL Total Bilirubin (0.2-1.3) mg/dL AST (17-59) U/L ALT (0-50) U/L Alkaline Phosphatase (38-126) U/L Troponin I (0.000-0.034) ng/mL Serum Total Protein (6.3-8.2) g/dL Albumin (3.5-5.0) g/dL Amylase (30-110) U/L Lipase (23-300) U/L - Progress Progress: improved, pain not gone completely, re-examined Progress Note: 10/28/19 06:26 44 years old is evaluated for abdominal pain with vomiting. He is given IV fluid along with pain meds and antiemetic, on reevaluation patient is feeling better but pain is not completely improved. EKG showed sinus bradycardia but no ST elevations are depressions. Negative initial troponins. He has a white count of 14 and lactate of 1.7. With his presentation I have obtained CT abdomen and chest with contrast which showed diffuse colitis but no obstruction or perforation. I have started him on Zosyn. We will continue with hydration/antiemetics and I have discussed with Dr. Garzon, patient is accepted for admission. Discussed with : Jerome Will see patient in: hospital (observation) Counseled pt/family regarding: lab results, diagnosis, rad results, smoking cessation - Departure Departure Disposition: Observation Clinical Impression: Colitis, Intractable nausea and vomiting Condition: Fair Critical Care Time: Yes Critical Care Time(excluding separately billable procedures): Critical 30-74 mins Referrals: DOCTOR,NO FAMILY [Primary Care Provider] -
[2019-10-28] MEDS ORDERED: MORPHINE SULFATE 4 MG INJ ONE (05:57)
[2019-10-28] MEDS ORDERED: Phenergan 25 MG INJ IM ONE ×2 (06:17→06:25)
[2019-10-28] MEDS ORDERED: Phenergan 25 MG INJ ONE (06:20)
[2019-10-28] MEDS ORDERED: Zosyn 3.375 GM Vial 3.375 GM in Sodium Chloride 100ML MINI-BAG PLUS 100 ML IV ONE (06:22)
[2019-10-28] MEDS ORDERED: Zosyn 3.375 GM Vial IV ONE (06:30)
[2019-10-28] MEDS ORDERED: Sodium Chloride 100ML MINI-BAG PLUS 100 ML IV ONE (06:32)
[2019-10-28] MEDS ORDERED: PROTONIX 40 MG IV IV ONE ×2 (06:33→07:22)
[2019-10-28] MEDS ORDERED: Phenergan 25 MG INJ IM PRN (07:35)
[2019-10-28] MEDS ORDERED: MORPHINE SULFATE 4 MG INJ IV PRN (07:35)
[2019-10-28] MEDS: Lactated Ringers 1,000 ML IV SCH ×3 (09:16→23:33)
--- NOTE | 2019-10-28 09:21 | XRAY ---
Indication: Abdomen pain and emesis. Multiple contiguous axial images obtained through the chest using 100 cc Isovue 370 contrast. Comparison: None Lungs slightly degraded by respiration artifact especially near the lung bases. Mild bilateral dependent atelectasis, left upper lobe peripheral fibrosis/scarring, and mild bilateral upper lobe subpleural cystic changes. No suspicious pulmonary mass, infiltrate, or effusion. Heart is not enlarged. Aorta is normal in course and caliber. No pathologic mediastinal/hilar lymphadenopathy. Bony thorax intact. CT abdomen pelvis reported separately. Impression: Respiration artifact. Mild bilateral upper lobe subpleural cystic changes and left upper lobe fibrosis/scarring. Remaining CT chest with contrast exam is negative. Comment: Preliminary interpretation was made by C. No critical discrepancy.
[2019-10-28] MEDS: Zofran 4 MG/2 ML VIAL IV PRN ×3 (09:23→23:35)
--- NOTE | 2019-10-28 09:27 | XRAY ---
Indication: Abdomen pain and emesis. Multiple contiguous axial images obtained through the abdomen and pelvis using 100 cc Isovue 370 contrast. Comparison: None CT chest reported separately. Noncontrasted stomach and bowel loops appear nonobstructed. Previous reported appendectomy. No free fluid/air. Stable hepatic cysts again largest left lobe measuring 1.5 cm. Also stable subcentimeter right renal cortical cyst. Remaining liver, gallbladder, pancreas, spleen, adrenal glands, kidneys, ureters, bladder, and aorta appear unremarkable. There remains minimal biiliac artery calcifications. No pathologic retroperitoneal lymphadenopathy. Osseous structures intact. Impression: 1. Stable hepatic and right renal cysts. 2. Remaining CT abdomen/pelvis with contrast exam is negative. Comment: Preliminary interpretation was made by [facility] who reports diffuse colonic wall thickening which I do not appreciate as the colon is mostly decompressed/empty.
[2019-10-28 09:35] LABS: Appearance CLEAR (CLEAR); Bilirubin NEGATIVE (NEGATIVE); Blood NEGATIVE Ery/ul (0-5); Glucose 50 mg/dL (NEGATIVE); Ketones NEGATIVE (NEGATIVE); Leukocyte Esterase NEGATIVE (NEGATIVE); Mucus SLIGHT /HPF (NEGATIVE); Nitrite NEGATIVE (NEGATIVE); Protein,Urine Dip NEGATIVE (Negative); Specific Gravity 1.054 (1.005-1.025); Urobilinogen NEGATIVE mg/dL (0-1)
[2019-10-28 09:42] LABS: Amphetamine,Urine NEGATIVE (NEGATIVE); Barbiturate,Urine NEGATIVE (NEGATIVE); Benzodiazepine,Urine NEGATIVE (NEGATIVE); Cocaine,Urine NEGATIVE (NEGATIVE); Methadone,Urine NEGATIVE (NEGATIVE); Opiate,Urine POSITIVE (NEGATIVE); PCP,Urine NEGATIVE (NEGATIVE); THC,Urine POSITIVE (NEGATIVE)
[2019-10-28] MEDS: Zosyn 3.375 GM Vial 3.375 GM in Sodium Chloride 100ML MINI-BAG PLUS 100 ML IV SCH ×3 (12:00→23:36)
[2019-10-28] MEDS ORDERED: BENADRYL 50 MG/ML IV PRN (17:15)
[2019-10-28] MEDS ORDERED: Transderm Scop 1.5MG Patch TOP ONE (17:15)
--- NOTE | 2019-10-28 19:47 | PCM.HP ---
History of Present Illness - Chief Complaint Chief Complaint: Colitis History of Present Illness: is a 44 year old male pt with no PCP (sees Dr. Saini for psych meds ) who was admitted through ER with colitis, vomiting, and abd pain. It started at 11 a.m. yesterday with sharp, shooting pain in the epigastric area radiating to the suprapubic area with some diarrhea then vomiting. Vomiting has gone from green to brown in color. Pain was 10/10 at admission, now 8/10 but he is able to sleep for short periods of time (just received morphine). Per pt's SO he has had about 3-4 episodes like this in the past 11 years. He will get sweaty, disoriented, have abd pain/vomiting. He states it happened more when he was a child. He does not remember being tested for sickle cell anemia. Pt also c/o L CP and arm pain, "like a fist," lasting from moments to 30 sec, with SOB and diaphoresis, no palpitations. - Review of Systems Constitutional: Chills, Fatigue, Weakness Respiratory: Short Of Breath Cardiac: Chest Pain Abdominal/Gastrointestinal: Abdominal Pain, Nausea, Vomiting, Diarrhea, Appetite Changes Skin: Other (diaphoresis) Neurological: Dizziness, Other (some intermittent confusion) Psychological: Anxiety, Depression, No Suicidal Ideations All Other Systems: Reviewed and Negative Medications & Allergies Home Medications: Home Medication List No Reportable Medications [No Reported Medications] 10/28/19 [History Confirmed 10/28/19] Allergies/Adverse Reactions: Allergies Allergy/AdvReac Type Severity Reaction Status Date / Time No Known Drug Allergies Allergy Verified 06/30/17 23:49 - Past Medical History Past Medical History: Yes Neurological History: No Pertinent History ENT History: No Pertinent History Cardiac History: No Pertinent History Respiratory History: No Pertinent History Endocrine Medical History: No Pertinent History Musculoskelatal History: No Pertinent History GI Medical History: No Pertinent History History: No Pertinent History Pyscho-Social History: Bipolar Comment: bipolar - Past Surgical History Past Surgical History: Yes Neuro Surgical History: No Pertinent History Cardiac History: No Pertinent History Respiratory Surgery: No Pertinent History GI Surgical History: Appendectomy Genitourinary Surgical Hx: No Pertinent History Musculskeletal Surgical Hx: No Pertinent History Male Surgical History: No Pertinent History - Social History Smoking Status: Current every day smoker Exposure to second hand smoke: Yes Alcohol: None Drug Use: marijuana - Physical Exam Vital Signs: Vital Signs - 24 hr Temp Pulse Resp BP Pulse Ox 10/28/19 16:00 99 F 84 14 156/92 98 10/28/19 12:00 99.7 F 61 20 176/83 99 10/28/19 08:10 97 F 48 L 14 168/84 90 L 10/28/19 06:00 48 L 16 131/87 99 10/28/19 05:32 54 L 16 131/87 98 10/28/19 04:32 96 F 53 L 16 133/84 97 General Appearance: moderate distress, other (somnolent but wakes to touch or voice) Neurologic Exam: cooperative, No facial droop Eye Exam: eyes nml inspection Ears, Nose, Throat Exam: moist mucous membranes Neck Exam: normal inspection Respiratory Exam: normal breath sounds, lungs clear, No respiratory distress, No diminished breath sounds, No crackles/rales, No rhonchi, No wheezing Cardiovascular Exam: regular rate/rhythm, normal heart sounds, No murmur Gastrointestinal/Abdomen Exam: soft, normal bowel sounds, tenderness (throughout ), No distention, No mass, No guarding, No rebound Back Exam: normal inspection, No rash Extremity Exam: normal inspection, No pedal edema, No swelling Skin Exam: normal color, warm, dry, No rash Results - Labs Lab/Micro Results: Lab Results-Last 24 Hours 10/28/19 10/28/19 10/28/19 Range/Units 04:58 04:58 04:58 WBC 14.2 H (4.0-10.5) K/mm3 RBC 4.75 (4.1-5.6) M/mm3 Hgb 15.0 (12.5-18.0) gm/dl Hct 44.1 (42-50) % MCV 92.8 (78-100) fl MCH 31.6 (26-32) pg MCHC 34.0 (32-36) g/dl RDW 12.6 (11.5-14.0) % Plt Count 208 (150-450) K/mm3 MPV 10.7 (7.5-11.0) fl Gran % 78.1 H (36.0-66.0) % Eos # (Auto) 0.15 (0-0.5) Absolute Lymphs (auto) 1.89 (1.0-4.6) Absolute Monos (auto) 1.01 (0.0-1.3) Lymphocytes % 13.3 L (24.0-44.0) % Monocytes % 7.1 (0.0-12.0) % Eosinophils % 1.1 (0.00-5.0) % Basophils % 0.4 (0.0-0.4) % Absolute Granulocytes 11.12 H (1.4-6.9) Basophils # 0.06 (0-0.4) Sodium 141 (137-145) mmol/L Potassium 4.3 (3.5-5.1) mmol/L Chloride 111 H (98-107) mmol/L Carbon Dioxide 24 (22-30) mmol/L Anion Gap 11.2 (5-15) MEQ/L BUN 11 (9-20) mg/dL Creatinine 0.84 (0.66-1.25) mg/dL Estimated GFR > 60.0 ML/MIN Glucose 169 H (74-106) mg/dL Lactic Acid 1.7 (0.4-2.0) Calcium 9.5 (8.4-10.2) mg/dL Total Bilirubin 0.50 (0.2-1.3) mg/dL AST 28 (17-59) U/L ALT 14 (0-50) U/L Alkaline Phosphatase 77 (38-126) U/L Troponin I (0.000-0.034) ng/mL Serum Total Protein 8.0 (6.3-8.2) g/dL Albumin 4.7 (3.5-5.0) g/dL Amylase 100 (30-110) U/L Lipase 78 (23-300) U/L Urine Color (YELLOW) Urine Appearance (CLEAR) Urine pH (5-6) Ur Specific [place] (1.005-1.025) Urine Protein (Negative) Urine Ketones (NEGATIVE) Urine Blood (0-5) Daniel/ul Urine Nitrite (NEGATIVE) Urine Bilirubin (NEGATIVE) Urine Urobilinogen (0-1) mg/dL Ur Leukocyte Esterase (NEGATIVE) Urine WBC (Auto) (0-5) /HPF Urine RBC (Auto) (0-2) /HPF U Epithel Cells (Auto) (FEW) /HPF Urine Bacteria (Auto) (NEGATIVE) /HPF Urine Mucus (Auto) (NEGATIVE) /HPF Urine Culture Reflexed (NO) Urine Glucose (NEGATIVE) mg/dL Urine Opiates Level (NEGATIVE) Ur Methadone (NEGATIVE) Urine Barbiturates (NEGATIVE) Ur Phencyclidine (PCP) (NEGATIVE) Urine Amphetamine (NEGATIVE) U Benzodiazepine Level (NEGATIVE) Urine Cocaine (NEGATIVE) Urine Marijuana (THC) (NEGATIVE) 10/28/19 10/28/19 10/28/19 Range/Units 05:00 08:10 09:02 WBC (4.0-10.5) K/mm3 RBC (4.1-5.6) M/mm3 Hgb (12.5-18.0) gm/dl Hct (42-50) % MCV (78-100) fl MCH (26-32) pg MCHC (32-36) g/dl RDW (11.5-14.0) % Plt Count (150-450) K/mm3 MPV (7.5-11.0) fl Gran % (36.0-66.0) % Eos # (Auto) (0-0.5) Absolute Lymphs (auto) (1.0-4.6) Absolute Monos (auto) (0.0-1.3) Lymphocytes % (24.0-44.0) % Monocytes % (0.0-12.0) % Eosinophils % (0.00-5.0) % Basophils % (0.0-0.4) % Absolute Granulocytes (1.4-6.9) Basophils # (0-0.4) Sodium (137-145) mmol/L Potassium (3.5-5.1) mmol/L Chloride (98-107) mmol/L Carbon Dioxide (22-30) mmol/L Anion Gap (5-15) MEQ/L BUN (9-20) mg/dL Creatinine (0.66-1.25) mg/dL Estimated GFR ML/MIN Glucose (74-106) mg/dL Lactic Acid (0.4-2.0) Calcium (8.4-10.2) mg/dL Total Bilirubin (0.2-1.3) mg/dL AST (17-59) U/L ALT (0-50) U/L Alkaline Phosphatase (38-126) U/L Troponin I < 0.012 < 0.012 (0.000-0.034) ng/mL Serum Total Protein (6.3-8.2) g/dL Albumin (3.5-5.0) g/dL Amylase (30-110) U/L Lipase (23-300) U/L Urine Color YELLOW (YELLOW) Urine Appearance CLEAR (CLEAR) Urine pH 6.0 (5-6) Ur Specific [place] 1.054 (1.005-1.025) Urine Protein NEGATIVE (Negative) Urine Ketones NEGATIVE (NEGATIVE) Urine Blood NEGATIVE (0-5) Daniel/ul Urine Nitrite NEGATIVE (NEGATIVE) Urine Bilirubin NEGATIVE (NEGATIVE) Urine Urobilinogen NEGATIVE (0-1) mg/dL Ur Leukocyte Esterase NEGATIVE (NEGATIVE) Urine WBC (Auto) NONE (0-5) /HPF Urine RBC (Auto) NONE (0-2) /HPF U Epithel Cells (Auto) NONE (FEW) /HPF Urine Bacteria (Auto) NONE (NEGATIVE) /HPF Urine Mucus (Auto) SLIGHT (NEGATIVE) /HPF Urine Culture Reflexed NO (NO) Urine Glucose 50 (NEGATIVE) mg/dL Urine Opiates Level (NEGATIVE) Ur Methadone (NEGATIVE) Urine Barbiturates (NEGATIVE) Ur Phencyclidine (PCP) (NEGATIVE) Urine Amphetamine (NEGATIVE) U Benzodiazepine Level (NEGATIVE) Urine Cocaine (NEGATIVE) Urine Marijuana (THC) (NEGATIVE) 10/28/19 10/28/19 10/28/19 Range/Units 09:02 12:35 14:30 WBC (4.0-10.5) K/mm3 RBC (4.1-5.6) M/mm3 Hgb (12.5-18.0) gm/dl Hct (42-50) % MCV (78-100) fl MCH (26-32) pg MCHC (32-36) g/dl RDW (11.5-14.0) % Plt Count (150-450) K/mm3 MPV (7.5-11.0) fl Gran % (36.0-66.0) % Eos # (Auto) (0-0.5) Absolute Lymphs (auto) (1.0-4.6) Absolute Monos (auto) (0.0-1.3) Lymphocytes % (24.0-44.0) % Monocytes % (0.0-12.0) % Eosinophils % (0.00-5.0) % Basophils % (0.0-0.4) % Absolute Granulocytes (1.4-6.9) Basophils # (0-0.4) Sodium (137-145) mmol/L Potassium (3.5-5.1) mmol/L Chloride (98-107) mmol/L Carbon Dioxide (22-30) mmol/L Anion Gap (5-15) MEQ/L BUN (9-20) mg/dL Creatinine (0.66-1.25) mg/dL Estimated GFR ML/MIN Glucose (74-106) mg/dL Lactic Acid (0.4-2.0) Calcium (8.4-10.2) mg/dL Total Bilirubin (0.2-1.3) mg/dL AST (17-59) U/L ALT (0-50) U/L Alkaline Phosphatase (38-126) U/L Troponin I < 0.012 0.013 (0.000-0.034) ng/mL Serum Total Protein (6.3-8.2) g/dL Albumin (3.5-5.0) g/dL Amylase (30-110) U/L Lipase (23-300) U/L Urine Color (YELLOW) Urine Appearance (CLEAR) Urine pH (5-6) Ur Specific [place] (1.005-1.025) Urine Protein (Negative) Urine Ketones (NEGATIVE) Urine Blood (0-5) Daniel/ul Urine Nitrite (NEGATIVE) Urine Bilirubin (NEGATIVE) Urine Urobilinogen (0-1) mg/dL Ur Leukocyte Esterase (NEGATIVE) Urine WBC (Auto) (0-5) /HPF Urine RBC (Auto) (0-2) /HPF U Epithel Cells (Auto) (FEW) /HPF Urine Bacteria (Auto) (NEGATIVE) /HPF Urine Mucus (Auto) (NEGATIVE) /HPF Urine Culture Reflexed (NO) Urine Glucose (NEGATIVE) mg/dL Urine Opiates Level POSITIVE (NEGATIVE) Ur Methadone NEGATIVE (NEGATIVE) Urine Barbiturates NEGATIVE (NEGATIVE) Ur Phencyclidine (PCP) NEGATIVE (NEGATIVE) Urine Amphetamine NEGATIVE (NEGATIVE) U Benzodiazepine Level NEGATIVE (NEGATIVE) Urine Cocaine NEGATIVE (NEGATIVE) Urine Marijuana (THC) POSITIVE (NEGATIVE) 10/28/19 Range/Units 17:15 WBC (4.0-10.5) K/mm3 RBC (4.1-5.6) M/mm3 Hgb (12.5-18.0) gm/dl Hct (42-50) % MCV (78-100) fl MCH (26-32) pg MCHC (32-36) g/dl RDW (11.5-14.0) % Plt Count (150-450) K/mm3 MPV (7.5-11.0) fl Gran % (36.0-66.0) % Eos # (Auto) (0-0.5) Absolute Lymphs (auto) (1.0-4.6) Absolute Monos (auto) (0.0-1.3) Lymphocytes % (24.0-44.0) % Monocytes % (0.0-12.0) % Eosinophils % (0.00-5.0) % Basophils % (0.0-0.4) % Absolute Granulocytes (1.4-6.9) Basophils # (0-0.4) Sodium (137-145) mmol/L Potassium (3.5-5.1) mmol/L Chloride (98-107) mmol/L Carbon Dioxide (22-30) mmol/L Anion Gap (5-15) MEQ/L BUN (9-20) mg/dL Creatinine (0.66-1.25) mg/dL Estimated GFR ML/MIN Glucose (74-106) mg/dL Lactic Acid (0.4-2.0) Calcium (8.4-10.2) mg/dL Total Bilirubin (0.2-1.3) mg/dL AST (17-59) U/L ALT (0-50) U/L Alkaline Phosphatase (38-126) U/L Troponin I < 0.012 (0.000-0.034) ng/mL Serum Total Protein (6.3-8.2) g/dL Albumin (3.5-5.0) g/dL Amylase (30-110) U/L Lipase (23-300) U/L Urine Color (YELLOW) Urine Appearance (CLEAR) Urine pH (5-6) Ur Specific [place] (1.005-1.025) Urine Protein (Negative) Urine Ketones (NEGATIVE) Urine Blood (0-5) Daniel/ul Urine Nitrite (NEGATIVE) Urine Bilirubin (NEGATIVE) Urine Urobilinogen (0-1) mg/dL Ur Leukocyte Esterase (NEGATIVE) Urine WBC (Auto) (0-5) /HPF Urine RBC (Auto) (0-2) /HPF U Epithel Cells (Auto) (FEW) /HPF Urine Bacteria (Auto) (NEGATIVE) /HPF Urine Mucus (Auto) (NEGATIVE) /HPF Urine Culture Reflexed (NO) Urine Glucose (NEGATIVE) mg/dL Urine Opiates Level (NEGATIVE) Ur Methadone (NEGATIVE) Urine Barbiturates (NEGATIVE) Ur Phencyclidine (PCP) (NEGATIVE) Urine Amphetamine (NEGATIVE) U Benzodiazepine Level (NEGATIVE) Urine Cocaine (NEGATIVE) Urine Marijuana (THC) (NEGATIVE) - Radiology Impressions Radiology Exams & Impressions: Radiology Procedures Category Date Time Status ABDOMEN AND PELVIS W CONTRAST [CT] Stat Exams 10/28/19 04:59 Completed CHEST WITH CONTRAST [CT] Stat Exams 10/28/19 05:01 Completed Assessment/Plan (1) Colitis Current Visit: Yes Status: Acute Assessment & Plan: Question of - first read of CT scan indicated colitis, although Dr. Brizuela's over read did not find it so. Pt on zosyn day #1. Does have elevated WBC to 14.2 but could be due to vomiting. Will leave him on the zosyn for now. Code(s): K52.9 - NONINFECTIVE GASTROENTERITIS AND COLITIS, UNSPECIFIED (2) Intractable nausea and vomiting Current Visit: Yes Status: Acute Assessment & Plan: Better with addition of scopolamine transdermal. Code(s): R11.2 - NAUSEA WITH VOMITING, UNSPECIFIED (3) Hyperglycemia Current Visit: Yes Status: Acute Assessment & Plan: check a1c. his mother has DM. Code(s): R73.9 - HYPERGLYCEMIA, UNSPECIFIED (4) Chest pain Current Visit: Yes Status: Chronic Qualifiers: Chest pain type: other chest pain Qualified Code(s): R07.89 - Other chest pain; R07.8 - Other chest pain Assessment & Plan: will need outpatient treadmill stress test. Code(s): R07.9 - CHEST PAIN, UNSPECIFIED (5) Anxiety Current Visit: Yes Status: Chronic Code(s): F41.9 - ANXIETY DISORDER, UNSPECIFIED
[2019-10-29 05:06] LABS: Absolute Neutrophil Ct (ANC) 7.91 (1.4-6.9); BASOPHIL % 0.1 % (0.0-0.4); Basophil (Absolute #) 0.01 (0-0.4); Eosinophil % 0.6 % (0.00-5.0); Eosinophil (Absolute #) 0.07 (0-0.5); Hematocrit 38.8 % (42-50); Lymphocytes % 21.6 % (24.0-44.0); Mean Cell Volume 93.5 fl (78-100); Mean Corpuscular Hemoglobin 31.3 pg (26-32); Mean Corpuscular Hgb Concent. 33.5 g/dl (32-36); Monocytes % 9.5 % (0.0-12.0); Neutrophil % 68.2 % (36.0-66.0); Platelet Count 175 K/mm3 (150-450); Red Blood Count 4.15 M/mm3 (4.1-5.6); Red Cell Distribution Width 12.5 % (11.5-14.0); White Blood Count 11.6 K/mm3 (4.0-10.5)
[2019-10-29] MEDS: Zosyn 3.375 GM Vial 3.375 GM in Sodium Chloride 100ML MINI-BAG PLUS 100 ML IV SCH (05:58)
[2019-10-29 06:16] LABS: ALBUMIN 3.9 g/dL (3.5-5.0); ALKALINE PHOSPHATASE 50 U/L (38-126); ANION GAP 9.9 MEQ/L (5-15); BLOOD UREA NITROGEN 8 mg/dL (9-20); CHLORIDE 108 mmol/L (98-107); Calcium 8.7 mg/dL (8.4-10.2); Carbon Dioxide 27 mmol/L (22-30); Creatinine 1 0.82 mg/dL (0.66-1.25); Glucose 106 mg/dL (74-106); Potassium 3.8 mmol/L (3.5-5.1); SGOT/AST 60 U/L (17-59); SGPT/ALT 17 U/L (0-50); SODIUM 141 mmol/L (137-145); Total Protein 6.5 g/dL (6.3-8.2)
[2019-10-29] MEDS: Lactated Ringers 1,000 ML IV SCH (07:48)
[2019-10-29 08:41] VITALS: BP 123/76; PULSE 83; O2SAT 98
--- NOTE | 2019-10-29 09:37 | PCM.DS ---
Discharge Summary Date of Admission: 10/28/19 07:32 Admitting Physician: ASIF MOLINA Primary Care Provider: NO FAMILY DOCTOR Allergies Allergies No Known Drug Allergies Allergy (Verified 06/30/17 23:49) Hospital Summary - Hospital Course Hospital Course: Pt is 44 yo male with hx infrequent boughts of vomiting and abd pain who was admitted through ER for same. His initial WBC was 14.2; inital CT read + for colitis, but not appreciated on over read. On zosyn IV x 2d. Started feeling better with scopolamine transderm application. BS slightly elevated but a1c 5.54. C/o some CP intermittently - will get OP treadmill. Has been having no pain since midnight, feeling great. [place] liquid diet. If franklin bland, will d/c to home. - Vitals & Intake/Output Vital Signs: Vital Signs Temperature 98.6 F 10/29/19 08:00 Pulse Rate 83 10/29/19 08:00 Respiratory Rate 18 10/29/19 08:00 Blood Pressure 123/76 10/29/19 08:00 O2 Sat by Pulse Oximetry 98 10/29/19 08:00 Intake & Output: Intake & Output 10/26/19 10/27/19 10/28/19 10/29/19 11:59 11:59 11:59 11:59 Intake Total 4818 Output Total 500 2475 Balance -500 2343 Weight 78 kg - Lab Result Diagrams: 10/29/19 04:20 10/29/19 04:20 Lab Results-Last 24 Hrs: Lab Results-Last 24 Hours 10/28/19 10/28/19 10/28/19 Range/Units 05:17 09:02 09:02 WBC (4.0-10.5) K/mm3 RBC (4.1-5.6) M/mm3 Hgb (12.5-18.0) gm/dl Hct (42-50) % MCV (78-100) fl MCH (26-32) pg MCHC (32-36) g/dl RDW (11.5-14.0) % Plt Count (150-450) K/mm3 MPV (7.5-11.0) fl Gran % (36.0-66.0) % Eos # (Auto) (0-0.5) Absolute Lymphs (auto) (1.0-4.6) Absolute Monos (auto) (0.0-1.3) Lymphocytes % (24.0-44.0) % Monocytes % (0.0-12.0) % Eosinophils % (0.00-5.0) % Basophils % (0.0-0.4) % Absolute Granulocytes (1.4-6.9) Basophils # (0-0.4) Sodium (137-145) mmol/L Potassium (3.5-5.1) mmol/L Chloride (98-107) mmol/L Carbon Dioxide (22-30) mmol/L Anion Gap (5-15) MEQ/L BUN (9-20) mg/dL Creatinine (0.66-1.25) mg/dL Estimated GFR ML/MIN Glucose (74-106) mg/dL Hemoglobin A1c 5.54 (4.5-6.0) % Calcium (8.4-10.2) mg/dL Total Bilirubin (0.2-1.3) mg/dL AST (17-59) U/L ALT (0-50) U/L Alkaline Phosphatase (38-126) U/L Troponin I (0.000-0.034) ng/mL Serum Total Protein (6.3-8.2) g/dL Albumin (3.5-5.0) g/dL Urine Color YELLOW (YELLOW) Urine Appearance CLEAR (CLEAR) Urine pH 6.0 (5-6) Ur Specific [place] 1.054 (1.005-1.025) Urine Protein NEGATIVE (Negative) Urine Ketones NEGATIVE (NEGATIVE) Urine Blood NEGATIVE (0-5) Daniel/ul Urine Nitrite NEGATIVE (NEGATIVE) Urine Bilirubin NEGATIVE (NEGATIVE) Urine Urobilinogen NEGATIVE (0-1) mg/dL Ur Leukocyte Esterase NEGATIVE (NEGATIVE) Urine WBC (Auto) NONE (0-5) /HPF Urine RBC (Auto) NONE (0-2) /HPF U Epithel Cells (Auto) NONE (FEW) /HPF Urine Bacteria (Auto) NONE (NEGATIVE) /HPF Urine Mucus (Auto) SLIGHT (NEGATIVE) /HPF Urine Culture Reflexed NO (NO) Urine Glucose 50 (NEGATIVE) mg/dL Urine Opiates Level POSITIVE (NEGATIVE) Ur Methadone NEGATIVE (NEGATIVE) Urine Barbiturates NEGATIVE (NEGATIVE) Ur Phencyclidine (PCP) NEGATIVE (NEGATIVE) Urine Amphetamine NEGATIVE (NEGATIVE) U Benzodiazepine Level NEGATIVE (NEGATIVE) Urine Cocaine NEGATIVE (NEGATIVE) Urine Marijuana (THC) POSITIVE (NEGATIVE) 10/28/19 10/28/19 10/28/19 Range/Units 12:35 14:30 17:15 WBC (4.0-10.5) K/mm3 RBC (4.1-5.6) M/mm3 Hgb (12.5-18.0) gm/dl Hct (42-50) % MCV (78-100) fl MCH (26-32) pg MCHC (32-36) g/dl RDW (11.5-14.0) % Plt Count (150-450) K/mm3 MPV (7.5-11.0) fl Gran % (36.0-66.0) % Eos # (Auto) (0-0.5) Absolute Lymphs (auto) (1.0-4.6) Absolute Monos (auto) (0.0-1.3) Lymphocytes % (24.0-44.0) % Monocytes % (0.0-12.0) % Eosinophils % (0.00-5.0) % Basophils % (0.0-0.4) % Absolute Granulocytes (1.4-6.9) Basophils # (0-0.4) Sodium (137-145) mmol/L Potassium (3.5-5.1) mmol/L Chloride (98-107) mmol/L Carbon Dioxide (22-30) mmol/L Anion Gap (5-15) MEQ/L BUN (9-20) mg/dL Creatinine (0.66-1.25) mg/dL Estimated GFR ML/MIN Glucose (74-106) mg/dL Hemoglobin A1c (4.5-6.0) % Calcium (8.4-10.2) mg/dL Total Bilirubin (0.2-1.3) mg/dL AST (17-59) U/L ALT (0-50) U/L Alkaline Phosphatase (38-126) U/L Troponin I < 0.012 0.013 < 0.012 (0.000-0.034) ng/mL Serum Total Protein (6.3-8.2) g/dL Albumin (3.5-5.0) g/dL Urine Color (YELLOW) Urine Appearance (CLEAR) Urine pH (5-6) Ur Specific [place] (1.005-1.025) Urine Protein (Negative) Urine Ketones (NEGATIVE) Urine Blood (0-5) Daniel/ul Urine Nitrite (NEGATIVE) Urine Bilirubin (NEGATIVE) Urine Urobilinogen (0-1) mg/dL Ur Leukocyte Esterase (NEGATIVE) Urine WBC (Auto) (0-5) /HPF Urine RBC (Auto) (0-2) /HPF U Epithel Cells (Auto) (FEW) /HPF Urine Bacteria (Auto) (NEGATIVE) /HPF Urine Mucus (Auto) (NEGATIVE) /HPF Urine Culture Reflexed (NO) Urine Glucose (NEGATIVE) mg/dL Urine Opiates Level (NEGATIVE) Ur Methadone (NEGATIVE) Urine Barbiturates (NEGATIVE) Ur Phencyclidine (PCP) (NEGATIVE) Urine Amphetamine (NEGATIVE) U Benzodiazepine Level (NEGATIVE) Urine Cocaine (NEGATIVE) Urine Marijuana (THC) (NEGATIVE) 10/29/19 10/29/19 Range/Units 04:20 04:20 WBC 11.6 H (4.0-10.5) K/mm3 RBC 4.15 (4.1-5.6) M/mm3 Hgb 13.0 (12.5-18.0) gm/dl Hct 38.8 L (42-50) % MCV 93.5 (78-100) fl MCH 31.3 (26-32) pg MCHC 33.5 (32-36) g/dl RDW 12.5 (11.5-14.0) % Plt Count 175 (150-450) K/mm3 MPV 11.0 (7.5-11.0) fl Gran % 68.2 H (36.0-66.0) % Eos # (Auto) 0.07 (0-0.5) Absolute Lymphs (auto) 2.50 (1.0-4.6) Absolute Monos (auto) 1.10 (0.0-1.3) Lymphocytes % 21.6 L (24.0-44.0) % Monocytes % 9.5 (0.0-12.0) % Eosinophils % 0.6 (0.00-5.0) % Basophils % 0.1 (0.0-0.4) % Absolute Granulocytes 7.91 H (1.4-6.9) Basophils # 0.01 (0-0.4) Sodium 141 (137-145) mmol/L Potassium 3.8 (3.5-5.1) mmol/L Chloride 108 H (98-107) mmol/L Carbon Dioxide 27 (22-30) mmol/L Anion Gap 9.9 (5-15) MEQ/L BUN 8 L (9-20) mg/dL Creatinine 0.82 (0.66-1.25) mg/dL Estimated GFR > 60.0 ML/MIN Glucose 106 (74-106) mg/dL Hemoglobin A1c (4.5-6.0) % Calcium 8.7 (8.4-10.2) mg/dL Total Bilirubin 0.50 (0.2-1.3) mg/dL AST 60 H (17-59) U/L ALT 17 (0-50) U/L Alkaline Phosphatase 50 (38-126) U/L Troponin I (0.000-0.034) ng/mL Serum Total Protein 6.5 (6.3-8.2) g/dL Albumin 3.9 (3.5-5.0) g/dL Urine Color (YELLOW) Urine Appearance (CLEAR) Urine pH (5-6) Ur Specific [place] (1.005-1.025) Urine Protein (Negative) Urine Ketones (NEGATIVE) Urine Blood (0-5) Daniel/ul Urine Nitrite (NEGATIVE) Urine Bilirubin (NEGATIVE) Urine Urobilinogen (0-1) mg/dL Ur Leukocyte Esterase (NEGATIVE) Urine WBC (Auto) (0-5) /HPF Urine RBC (Auto) (0-2) /HPF U Epithel Cells (Auto) (FEW) /HPF Urine Bacteria (Auto) (NEGATIVE) /HPF Urine Mucus (Auto) (NEGATIVE) /HPF Urine Culture Reflexed (NO) Urine Glucose (NEGATIVE) mg/dL Urine Opiates Level (NEGATIVE) Ur Methadone (NEGATIVE) Urine Barbiturates (NEGATIVE) Ur Phencyclidine (PCP) (NEGATIVE) Urine Amphetamine (NEGATIVE) U Benzodiazepine Level (NEGATIVE) Urine Cocaine (NEGATIVE) Urine Marijuana (THC) (NEGATIVE) - Radiology Exams Ordered Rad Exams-Entire Visit: Radiology Procedures Category Date Time Status ABDOMEN AND PELVIS W CONTRAST [CT] Stat Exams 10/28/19 04:59 Completed CHEST WITH CONTRAST [CT] Stat Exams 10/28/19 05:01 Completed - Procedures and Test Procedures and Tests throughout Hospitalization: Therapy Orders & Screens 10/28/19 19:54 STRESS TEST [Schedule Outpt Stress Test] Routine Comment: Diagnosis: chest pain Schedule Outpt Stress Test: Regular Stress Test Cardiolite Stress Test: Regular Stress Test Discharge Exam General Appearance: no apparent distress, alert Neurologic Exam: oriented x 3, cooperative Eye Exam: eyes nml inspection Ears, Nose, Throat Exam: moist mucous membranes Neck Exam: normal inspection Respiratory Exam: normal breath sounds, lungs clear, No crackles/rales, No rhonchi, No wheezing Cardiovascular Exam: regular rate/rhythm, normal heart sounds, No murmur Gastrointestinal/Abdomen Exam: soft, normal bowel sounds, No tenderness, No distention, No mass, No guarding, No rebound Extremity Exam: normal inspection, No pedal edema, No swelling Skin Exam: normal color, warm, dry, No rash Final Diagnosis/Problem List - Final Discharge Diagnosis/Problem (1) Colitis Current Visit: Yes Status: Acute Assessment & Plan: Unsure if pt had any colitis, he is feeling great now, I really think just related to his ?cyclic vomiting disorder. There is a test pending for sickle cell anemia. Code(s): K52.9 - NONINFECTIVE GASTROENTERITIS AND COLITIS, UNSPECIFIED (2) Intractable nausea and vomiting Current Visit: Yes Status: Resolved Assessment & Plan: send home with transderm scop that he can try for future episodes. Code(s): R11.2 - NAUSEA WITH VOMITING, UNSPECIFIED (3) Hyperglycemia Current Visit: Yes Status: Acute Assessment & Plan: a1c nl Code(s): R73.9 - HYPERGLYCEMIA, UNSPECIFIED (4) Chest pain Current Visit: Yes Status: Chronic Assessment & Plan: op stress Code(s): R07.9 - CHEST PAIN, UNSPECIFIED (5) Anxiety Current Visit: Yes Status: Chronic Code(s): F41.9 - ANXIETY DISORDER, UNSPECIFIED - Discharge Disposition: Home, Self-Care Condition: Good Prescriptions: New Scopolamine 1.5 mg Patch [Transderm Scop 1.5MG Patch] 1.5 mg TD Q3D PRN #5 patch PRN Reason: Nausea Follow up with: DOCTOR,NO FAMILY [Primary Care Provider] - 1 Week
[2019-10-29] MEDS ORDERED: PROTONIX 40 MG IV IV SCH (10:00)
== END 2019-10-29 11:33 | disposition home or self-care (01) ==
LOC: ED 04:31 → MED SURG 07:32
PROVIDERS: ADMIT Family Medicine; ATTEND Family Medicine
DX: K52.9 Noninfective gastroenteritis and colitis, unspecified (principal); R11.2 Nausea with vomiting, unspecified; R73.9 Hyperglycemia, unspecified; R07.9 Chest pain, unspecified; F41.9 Anxiety disorder, unspecified; R53.1 Weakness; R53.83 Other fatigue; R68.83 Chills (without fever); R06.02 Shortness of breath; R42 Dizziness and giddiness; Z79.899 Other long term (current) drug therapy
CPT/HCPCS: 36415; 71260; 74177; 80053; 80307; 81001; 82150; 83020; 83036; 83605; 83690; 84484; 85025; 93005; 93268; 96360; 96365; 96372; 96374; 96375; 99291; G0378; 36000; 99285; J1200; J2270; J2405; J2550; J3010; A9270-GY

== ENCOUNTER 2020-10-23 10:47 | Emergency (ER) | payer MEDICARE ==
[2020-10-23] MEDS: ZOFRAN ODT 4 MG PO ONE (11:18)
[2020-10-23] MEDS ORDERED: Zofran 4 MG/2 ML VIAL ONE (11:20)
[2020-10-23] MEDS ORDERED: PROTONIX 40 MG IV IV ONE (11:20)
[2020-10-23] MEDS ORDERED: MORPHINE SULFATE 4 MG INJ ONE (11:20)
[2020-10-23] MEDS ORDERED: Sodium Chloride 0.9% 1000 ML 1,000 ML ONE ×2 (11:21→11:25)
[2020-10-23] MEDS: PROTONIX 40 MG IV IV ONE (11:23)
[2020-10-23] MEDS: MORPHINE SULFATE 4 MG INJ IV ONE (11:23)
[2020-10-23] MEDS: Zofran 4 MG/2 ML VIAL IV ONE (11:23)
[2020-10-23] MEDS: Sodium Chloride 0.9% 1000 ML 1,000 ML IV STA (11:24)
[2020-10-23 12:40] LABS: ALBUMIN 4.9 g/dL (3.5-5.0); ALKALINE PHOSPHATASE 71 U/L (38-126); AMYLASE 89 U/L (30-110); ANION GAP 14.5 MEQ/L (5-15); BLOOD UREA NITROGEN 12 mg/dL (9-20); CHLORIDE 109 mmol/L (98-107); Calcium 9.6 mg/dL (8.4-10.2); Carbon Dioxide 22 mmol/L (22-30); Creatinine 1 0.85 mg/dL (0.66-1.25); EST GLOMERULAR FILTRATION RATE > 60.0 ML/MIN; Glucose 156 mg/dL (74-106); LIPASE 69 U/L (23-300); Potassium 4.2 mmol/L (3.5-5.1); SGOT/AST 29 U/L (17-59); SGPT/ALT 15 U/L (0-50); SODIUM 141 mmol/L (137-145); Total Protein 7.9 g/dL (6.3-8.2)
[2020-10-23] MEDS ORDERED: Inapsine 5 MG/2 ML ONE (12:47)
[2020-10-23] MEDS ORDERED: BENADRYL 50 MG/ML ONE (12:47)
[2020-10-23] MEDS: BENADRYL 50 MG/ML IV ONE (12:50)
[2020-10-23] MEDS: Inapsine 5 MG/2 ML IV ONE (12:50)
--- NOTE | 2020-10-23 12:55 | XRAY ---
Indication: Diaphoresis. Intractable vomiting. Multiple contiguous axial images obtained through the abdomen and pelvis using 100 cc Isovue 370 contrast. Comparison: October 28, 2019. CT chest reported separately. Noncontrasted stomach and bowel loops remain nonobstructed. Previous reported appendectomy. No free fluid/air. Stable small hepatic cysts and tiny right renal cyst. Remaining liver, gallbladder, pancreas, spleen, adrenal glands, kidneys, ureters, and bladder are unremarkable. Stable minimal aortoiliac calcifications without AAA or pathologic retroperitoneal lymphadenopathy. Osseous structures remain intact. No ventral inguinal hernias. Impression: Continued negative CT abdomen/pelvis with contrast exam again with incidental hepatic/right renal cysts.
--- NOTE | 2020-10-23 12:56 | XRAY ---
Indication: Diaphoresis. Pulmonary embolus versus dissection. Multiple contiguous axial images obtained through the chest using 100 cc Isovue 370 contrast and PE protocol. Comparison: October 28, 2019. There is good opacification of the pulmonary arteries to include the lobar and segmental branches. No pulmonary embolus. Heart not enlarged. Aorta normal in course and caliber. No pathologic mediastinal/hilar lymphadenopathy. Lungs inflated again with biapical subpleural cystic changes. No pulmonary mass/nodule, infiltrate, or effusion. Bony thorax intact. Limited upper abdomen demonstrates stable left lobe hepatic cyst. Impression: Continued negative CT chest with contrast exam again with incidental chronic findings.
[2020-10-23 13:56] VITALS: O2SAT 96
--- NOTE | 2020-10-23 13:56 | ERPHSYRPT ---
- History of Present Illness Time Seen by Provider: 10/23/20 10:48 Historian: patient Exam Limitations: no limitations Patient Subjective Stated Complaint: Vomiting Triage Nursing Assessment: Patient brought back to ED via w/c and transferred self to bed. Patient A+O X 3. Patient's skin diaphoretic. Patient complains of abdominal pain and N/V. Patient reports he started having Chest pain last night, but currently denies pain. Patient states he started having abdominal pain at 0930 with N/V. Abdomen soft and round with BS X 4. Patient states pain is 8/10. Physician History: 45 years old male presented in the ER with chief complaint of sudden onset nausea vomiting and upper abdominal pain this morning. Patient has multiple episodes of nonprojectile, nonbilious vomiting and is not able to hold anything down. Patient reports increasing upper abdominal pain, sharp cramping nature, aggravated with movements palpation and vomiting. Patient is feeling weak fatigued tired, sweaty. He denies some retrosternal burning as well. Denies any sick contact. Did have similar symptoms almost a year ago. Timing/Duration: today, sudden, worse Activities at Onset: rest Quality: sharpness Abdominal Pain Onset Location: epigastric, generalized abdomen Severity of Pain-Max: moderate Severity of Pain-Current: moderate Modifying Factors: Worsens With: breathing, coughing, movement, palpation, vomiting Associated Symptoms: heartburn, nausea, vomiting Previous symptoms: same symptoms as today Allergies/Adverse Reactions: No Known Drug Allergies Allergy (Verified 10/23/20 10:54) Hx Tetanus, Diphtheria Vaccination/Date Given: No Hx Influenza Vaccination/Date Given: No Hx Pneumococcal Vaccination/Date Given: No Immunizations Up to Date: Yes Travel Risk - International Travel Have you traveled outside of the country in past 3 weeks: No - Coronavirus Screening Are you exhibiting any of the following symptoms?: No Close contact with a COVID-19 positive Pt in past 14-21 Days: No - Vaccine Status Have you recieved a Covid-19 vaccination: No - Review of Systems Constitutional: No Symptoms Eyes: No Symptoms Ears, Nose, & Throat: No Symptoms Respiratory: No Symptoms Cardiac: No Symptoms Abdominal/Gastrointestinal: Abdominal Pain, Nausea, Vomiting Genitourinary Symptoms: No Symptoms Musculoskeletal: No Symptoms Skin: No Symptoms Neurological: No Symptoms Psychological: No Symptoms Endocrine: No Symptoms Hematologic/Lymphatic: No Symptoms Immunological/Allergic: No Symptoms - Past Medical History Pertinent Past Medical History: Yes Neurological History: No Pertinent History ENT History: No Pertinent History Cardiac History: No Pertinent History Respiratory History: No Pertinent History Endocrine Medical History: No Pertinent History Musculoskeletal History: No Pertinent History GI Medical History: No Pertinent History History: No Pertinent History Psycho-Social History: Bipolar Other Medical History: bipolar - Past Surgical History Past Surgical History: Yes Neuro Surgical History: No Pertinent History Cardiac: No Pertinent History Respiratory: No Pertinent History Gastrointestinal: Appendectomy Genitourinary: No Pertinent History Musculoskeletal: No Pertinent History Male Surgical History: No Pertinent History - Social History Smoking Status: Current every day smoker How long have you smoked: years Exposure to second hand smoke: Yes Drug Use: marijuana Patient Lives Alone: No - Nursing Vital Signs Nursing Vital Signs: Initial Vital Signs Pulse Rate 71 10/23/20 10:56 Respiratory Rate 18 10/23/20 10:56 Blood Pressure 151/99 10/23/20 10:56 O2 Sat by Pulse Oximetry 98 10/23/20 10:56 Pain Scale Pain Intensity 6 - Physical Exam General Appearance: moderate distress Eye Exam: PERRL/EOMI, eyes nml inspection Ears, Nose, Throat Exam: pharyngeal erythema Neck Exam: normal inspection, non-tender, supple, full range of motion Respiratory Exam: normal breath sounds, lungs clear Cardiovascular Exam: regular rate/rhythm, normal heart sounds Gastrointestinal/Abdomen Exam: soft, normal bowel sounds, tenderness (Generalized), No guarding Back Exam: normal inspection, normal range of motion Extremity Exam: normal inspection, normal range of motion Neurologic Exam: alert, oriented x 3, cooperative Skin Exam: normal color SpO2 Interpretation: normal SpO2: 96 O2 Delivery: Room Air - Course EKG Interpreted by Me: RATE (56), Sinus Rhythm, NORMAL AXIS, NORMAL INTERVALS, Other (LVH) Ordered Tests: Active Orders 24 hr Category Date Time Status EKG-ER Only STAT Care 10/23/20 11:14 Active IV Insertion STAT Care 10/23/20 11:14 Active NPO (ED) STAT Care 10/23/20 11:14 Active ABDOMEN AND PELVIS W CONTRAST [CT] Stat Exams 10/23/20 11:09 Completed CHEST WITH CONTRAST [CT] Stat Exams 10/23/20 11:15 Completed AMYLASE Stat Lab 10/23/20 11:08 Completed CBC W DIFF Stat Lab 10/23/20 11:08 Completed CMP Stat Lab 10/23/20 11:08 Completed LIPASE Stat Lab 10/23/20 11:08 Completed Lactic Acid Stat Lab 10/23/20 11:08 Completed TROPONIN Q3H Lab 10/23/20 11:15 Completed TROPONIN Q3H Lab 10/23/20 14:23 Received TROPONIN Q3H Lab 10/23/20 17:15 Ordered TROPONIN Q3H Lab 10/23/20 20:15 Ordered TROPONIN Q3H Lab 10/23/20 23:15 Ordered UA W/RFX UR CULTURE Stat Lab 10/23/20 11:08 Received Urine Triage Profile Stat Lab 10/23/20 11:08 Received Medication Summary Discontinued Medications Generic Name Dose Route Start Last Admin Trade Name Freq PRN Reason Stop Dose Admin Diphenhydramine HCl 25 mg 10/23/20 12:46 10/23/20 12:50 Benadryl 50 Mg/Ml IV 10/23/20 12:47 25 mg STAT ONE Administration Diphenhydramine HCl Confirm 10/23/20 12:47 Benadryl 50 Mg/Ml Administered 10/23/20 12:48 Dose 50 mg .ROUTE .STK-MED ONE Droperidol 1.25 mg 10/23/20 12:46 10/23/20 12:50 Inapsine 5 Mg/2 Ml IV 10/23/20 12:47 1.25 mg STAT ONE Administration Droperidol Confirm 10/23/20 12:47 Inapsine 5 Mg/2 Ml Administered 10/23/20 12:48 Dose 5 mg .ROUTE .STK-MED ONE Sodium Chloride 1,000 mls @ 999 mls/hr 10/23/20 11:14 10/23/20 12:44 Sodium Chloride 0.9% 1000 Ml IV 10/23/20 12:14 Infused .Q1H1M STA Infusion Sodium Chloride Confirm 10/23/20 11:21 Sodium Chloride 0.9% 1000 Ml Administered 10/23/20 11:22 Dose 1,000 mls @ ud .ROUTE .STK-MED ONE Sodium Chloride Confirm 10/23/20 11:25 Sodium Chloride 0.9% 1000 Ml Administered 10/23/20 11:26 Dose 1,000 mls @ ud .ROUTE .STK-MED ONE Morphine Sulfate 4 mg 10/23/20 11:14 10/23/20 11:23 Morphine Sulfate 4 Mg Inj IV 10/23/20 11:15 4 mg STAT ONE Administration Morphine Sulfate Confirm 10/23/20 11:20 Morphine Sulfate 4 Mg Inj Administered 10/23/20 11:21 Dose 4 mg .ROUTE .STK-MED ONE Ondansetron HCl 4 mg 10/23/20 11:14 10/23/20 11:18 Zofran Odt 4 Mg PO 10/23/20 11:15 Not Given STAT ONE Ondansetron HCl 4 mg 10/23/20 11:18 10/23/20 11:23 Zofran 4 Mg/2 Ml Vial IV 10/23/20 11:19 4 mg STAT ONE Administration Ondansetron HCl Confirm 10/23/20 11:20 Zofran 4 Mg/2 Ml Vial Administered 10/23/20 11:21 Dose 4 mg .ROUTE .STK-MED ONE Pantoprazole Sodium 40 mg 10/23/20 11:14 10/23/20 11:23 Protonix 40 Mg Iv IV 10/23/20 11:15 40 mg STAT ONE Administration Pantoprazole Sodium Confirm 10/23/20 11:20 Protonix 40 Mg Iv Administered 10/23/20 11:21 Dose 40 mg IV .STK-MED ONE Prochlorperazine Edisylate 10 mg 10/23/20 14:03 10/23/20 14:06 Compazine 10 Mg/2 Ml IV 10/23/20 14:04 10 mg STAT ONE Administration Prochlorperazine Edisylate Confirm 10/23/20 14:05 Compazine 10 Mg/2 Ml Administered 10/23/20 14:06 Dose 10 mg .ROUTE .STK-MED ONE Lab/Rad Data: Laboratory Result Diagrams 10/23/20 11:08 10/23/20 11:08 Laboratory Results 10/23/20 10/23/20 10/23/20 Range/Units 11:15 11:08 11:08 WBC (4.0-10.5) K/mm3 RBC (4.1-5.6) M/mm3 Hgb (12.5-18.0) gm/dl Hct (42-50) % MCV (78-100) fl MCH (26-32) pg MCHC (32-36) g/dl RDW (11.5-14.0) % Plt Count (150-450) K/mm3 MPV (7.5-11.0) fl Gran % (36.0-66.0) % Eos # (Auto) (0-0.5) Absolute Lymphs (auto) (1.0-4.6) Absolute Monos (auto) (0.0-1.3) Lymphocytes % (24.0-44.0) % Monocytes % (0.0-12.0) % Eosinophils % (0.00-5.0) % Basophils % (0.0-0.4) % Absolute Granulocytes (1.4-6.9) Basophils # (0-0.4) Sodium 141 (137-145) mmol/L Potassium 4.2 (3.5-5.1) mmol/L Chloride 109 H (98-107) mmol/L Carbon Dioxide 22 (22-30) mmol/L Anion Gap 14.5 (5-15) MEQ/L BUN 12 (9-20) mg/dL Creatinine 0.85 (0.66-1.25) mg/dL Estimated GFR > 60.0 ML/MIN Glucose 156 H (74-106) mg/dL Lactic Acid 1.9 (0.4-2.0) Calcium 9.6 (8.4-10.2) mg/dL Total Bilirubin 0.50 (0.2-1.3) mg/dL AST 29 (17-59) U/L ALT 15 (0-50) U/L Alkaline Phosphatase 71 (38-126) U/L Troponin I < 0.012 (0.000-0.034) ng/mL Serum Total Protein 7.9 (6.3-8.2) g/dL Albumin 4.9 (3.5-5.0) g/dL Amylase 89 (30-110) U/L Lipase 69 (23-300) U/L 10/23/20 Range/Units 11:08 WBC 11.4 H (4.0-10.5) K/mm3 RBC 5.18 (4.1-5.6) M/mm3 Hgb 15.7 (12.5-18.0) gm/dl Hct 47.6 (42-50) % MCV 91.9 (78-100) fl MCH 30.3 (26-32) pg MCHC 33.0 (32-36) g/dl RDW 12.5 (11.5-14.0) % Plt Count 248 (150-450) K/mm3 MPV 11.3 H (7.5-11.0) fl Gran % 73.1 H (36.0-66.0) % Eos # (Auto) 0.19 (0-0.5) Absolute Lymphs (auto) 2.15 (1.0-4.6) Absolute Monos (auto) 0.67 (0.0-1.3) Lymphocytes % 18.9 L (24.0-44.0) % Monocytes % 5.9 (0.0-12.0) % Eosinophils % 1.7 (0.00-5.0) % Basophils % 0.4 (0.0-0.4) % Absolute Granulocytes 8.34 H (1.4-6.9) Basophils # 0.05 (0-0.4) Sodium (137-145) mmol/L Potassium (3.5-5.1) mmol/L Chloride (98-107) mmol/L Carbon Dioxide (22-30) mmol/L Anion Gap (5-15) MEQ/L BUN (9-20) mg/dL Creatinine (0.66-1.25) mg/dL Estimated GFR ML/MIN Glucose (74-106) mg/dL Lactic Acid (0.4-2.0) Calcium (8.4-10.2) mg/dL Total Bilirubin (0.2-1.3) mg/dL AST (17-59) U/L ALT (0-50) U/L Alkaline Phosphatase (38-126) U/L Troponin I (0.000-0.034) ng/mL Serum Total Protein (6.3-8.2) g/dL Albumin (3.5-5.0) g/dL Amylase (30-110) U/L Lipase (23-300) U/L - Progress Progress: improved, re-examined Progress Note: 10/23/20 14:46 Is given fluids and symptomatic treatment and antiemetics. His pain is almost completely resolved but has nausea and couple of episodes of vomiting and which is much improved after using Inapsine and Compazine. Acute abdomen work-up is pretty much negative for any acute finding including CT abdomen pelvis with contrast. Because of him getting diaphoretic, sweaty and some retrosternal discomfort/pain I have obtained CTA chest as well which is negative for any dissection or any other acute findings in the chest. EKG did not show any acute ST elevation and negative troponins. Patient is feeling much better on reevaluation. I have offered him observation admission but he wants to go home as he is feeling better and wants prescription of antiemetic. Patient does smoke marijuana daily and part of his symptoms could be secondary to cyclical vomiting syndrome secondary to cannabis as well. I have discussed with patient and significant other about symptoms/signs of worsening needing return to ER which they seem understanding. Stable for discharge. 10/23/20 14:49 Counseled pt/family regarding: lab results, diagnosis, need for follow-up, rad results - Departure Departure Disposition: Home Clinical Impression: Cyclical vomiting syndrome, Abdominal pain, bilateral upper quadrant Condition: Stable Critical Care Time: Yes Critical Care Time(excluding separately billable procedures): Critical 30-74 mins Referrals: LEONORA VILLATORO [Primary Care Provider] - Follow Up with PCP/3 days Instructions: Nausea and Vomiting, Adult (DC) Additional Instructions: Drink plenty of fluids. Take Tylenol as needed. Take Phenergan as needed for nausea and vomiting. Do not smoke marijuana. Follow-up with your primary care physician for reevaluation. Return to ER for intractable vomiting/abdominal pa in/fever chills etc. or if having chest pain. Prescriptions: Promethazine HCl 25 mg [Phenergan 25 mg] 25 mg PO Q8H PRN PRN #10 tablet PRN Reason: Vomiting
[2020-10-23 14:01] LABS: Absolute Neutrophil Ct (ANC) 8.34 (1.4-6.9); BASOPHIL % 0.4 % (0.0-0.4); Basophil (Absolute #) 0.05 (0-0.4); Eosinophil % 1.7 % (0.00-5.0); Eosinophil (Absolute #) 0.19 (0-0.5); Hematocrit 47.6 % (42-50); Hemoglobin 15.7 gm/dl (12.5-18.0); Lymphocyte (Absolute #) 2.15 (1.0-4.6); Lymphocytes % 18.9 % (24.0-44.0); Mean Cell Volume 91.9 fl (78-100); Mean Corpuscular Hemoglobin 30.3 pg (26-32); Mean Platelet Volume 11.3 fl (7.5-11.0); Monocyte (Absolute #) 0.67 (0.0-1.3); Monocytes % 5.9 % (0.0-12.0); Neutrophil % 73.1 % (36.0-66.0); Platelet Count 248 K/mm3 (150-450); Red Blood Count 5.18 M/mm3 (4.1-5.6); Red Cell Distribution Width 12.5 % (11.5-14.0); White Blood Count 11.4 K/mm3 (4.0-10.5)
[2020-10-23] MEDS ORDERED: Compazine 10 MG/2 ML ONE (14:05)
[2020-10-23] MEDS: Compazine 10 MG/2 ML IV ONE (14:06)
[2020-10-23 14:50] VITALS: BP 155/108; PULSE 68
== END 2020-10-23 14:57 | disposition home or self-care (01) ==
LOC: ED 10:47
DX: R11.15 Cyclical vomiting syndrome unrelated to migraine (principal); R10.12 Left upper quadrant pain; R10.11 Right upper quadrant pain
CPT/HCPCS: 36000; 36415; 71260; 74177; 80053; 82150; 83605; 83690; 84484; 85025; 93005; 96360; 96374; 96375; 99285; J1200; J2270; J2405

== ENCOUNTER 2020-10-26 13:05 | Observation (INO) | payer MEDICARE ==
[2020-10-26] MEDS ORDERED: Sodium Chloride 0.9% 1000 ML 1,000 ML IV STA (13:15)
[2020-10-26] MEDS ORDERED: Compazine 10 MG/2 ML IV ONE (13:16)
[2020-10-26] MEDS ORDERED: Compazine 10 MG/2 ML ONE (13:25)
[2020-10-26] MEDS ORDERED: Sodium Chloride 0.9% 1000 ML 1,000 ML ONE (13:26)
[2020-10-26 13:46] LABS: Absolute Neutrophil Ct (ANC) 7.48 (1.4-6.9); BASOPHIL % 0.1 % (0.0-0.4); Basophil (Absolute #) 0.01 (0-0.4); Eosinophil % 0.6 % (0.00-5.0); Eosinophil (Absolute #) 0.07 (0-0.5); Hematocrit 51.5 % (42-50); Hemoglobin 17.5 gm/dl (12.5-18.0); Lymphocyte (Absolute #) 2.59 (1.0-4.6); Lymphocytes % 22.3 % (24.0-44.0); Mean Cell Volume 89.9 fl (78-100); Mean Corpuscular Hemoglobin 30.5 pg (26-32); Mean Platelet Volume 10.5 fl (7.5-11.0); Monocyte (Absolute #) 1.49 (0.0-1.3); Monocytes % 12.8 % (0.0-12.0); Neutrophil % 64.2 % (36.0-66.0); Platelet Count 223 K/mm3 (150-450); Red Blood Count 5.73 M/mm3 (4.1-5.6); Red Cell Distribution Width 12.2 % (11.5-14.0); White Blood Count 11.6 K/mm3 (4.0-10.5)
--- NOTE | 2020-10-26 14:03 | ERPHSYRPT ---
- History of Present Illness Historian: patient Exam Limitations: no limitations Patient Subjective Stated Complaint: Pt began vomiting at 0830 on Monday and came to the ER then and continues to vomit Triage Nursing Assessment: Pt brought to the ER by his girlfriend, tachycardic, hypertensive, rates abdominal pain as 8/10 that he believes is from vomiting, pulses normal, skin n/w/d, doesn't appear to be in any distress Physician History: 45 yo AAM w N/V x 3 days. Pt has mild diffuse abdominal pain. He was seen in the ER on 10/23/20 and released. Visit was presumably due to marijuana use. Pain described as cramping, and nothing makes better or worse. He denies melena/hematochezia/hematemesis/dysuria/hematuria/fever/chest pain/dyspnea. Timing/Duration: day(s) (3 days) Activities at Onset: rest Quality: cramping Abdominal Pain Onset Location: generalized abdomen Pain Radiation: no radiation Severity of Pain-Max: moderate Severity of Pain-Current: moderate Modifying Factors: Improves With: nothing Associated Symptoms: loss of appetite, nausea, vomiting, No back, No chest pain, No diaphoresis, No diarrhea, No fever/chills, No fatigue, No headache, No heartburn, No neck pain, No rash, No shortness of breath, No syncope, No testicular pain, No weakness Previous symptoms: no prior history Allergies/Adverse Reactions: No Known Drug Allergies Allergy (Verified 10/26/20 13:21) Home Medications: No Reportable Medications [No Reported Medications] 10/26/20 [History] Hx Tetanus, Diphtheria Vaccination/Date Given: No Hx Influenza Vaccination/Date Given: No Hx Pneumococcal Vaccination/Date Given: No Travel Risk - International Travel Have you traveled outside of the country in past 3 weeks: No - Coronavirus Screening Are you exhibiting any of the following symptoms?: No Close contact with a COVID-19 positive Pt in past 14-21 Days: No - Vaccine Status Have you recieved a Covid-19 vaccination: No - Review of Systems Constitutional: No Symptoms Eyes: No Symptoms Ears, Nose, & Throat: No Symptoms Respiratory: No Symptoms Cardiac: No Symptoms Abdominal/Gastrointestinal: No Symptoms, Nausea, Vomiting, Appetite Changes Genitourinary Symptoms: No Symptoms Musculoskeletal: No Symptoms Skin: No Symptoms Neurological: No Symptoms Psychological: No Symptoms Endocrine: No Symptoms Hematologic/Lymphatic: No Symptoms Immunological/Allergic: No Symptoms - Past Medical History Pertinent Past Medical History: Yes Neurological History: No Pertinent History ENT History: No Pertinent History Cardiac History: No Pertinent History Respiratory History: No Pertinent History Endocrine Medical History: No Pertinent History Musculoskeletal History: No Pertinent History GI Medical History: No Pertinent History History: No Pertinent History Psycho-Social History: Bipolar Other Medical History: . - Past Surgical History Past Surgical History: Yes Neuro Surgical History: No Pertinent History Cardiac: No Pertinent History Respiratory: No Pertinent History Gastrointestinal: Appendectomy Genitourinary: No Pertinent History Musculoskeletal: No Pertinent History Male Surgical History: No Pertinent History - Social History Smoking Status: Current every day smoker How long have you smoked: years Exposure to second hand smoke: Yes Drug Use: marijuana Patient Lives Alone: No Significant Family History: no pertinent family hx - Nursing Vital Signs Nursing Vital Signs: Initial Vital Signs Temperature 98.6 F 10/26/20 13:09 Pulse Rate 114 H 10/26/20 13:09 Blood Pressure 134/115 10/26/20 13:09 O2 Sat by Pulse Oximetry 98 10/26/20 13:09 Pain Scale Pain Intensity 8 - Physical Exam General Appearance: no apparent distress Eye Exam: PERRL/EOMI, eyes nml inspection Ears, Nose, Throat Exam: normal ENT inspection, TMs normal, pharynx normal Neck Exam: normal inspection, non-tender, supple, full range of motion Respiratory Exam: normal breath sounds, lungs clear, airway intact, No res piratory distress Cardiovascular Exam: tachycardia, No murmur Gastrointestinal/Abdomen Exam: soft, normal bowel sounds, tenderness (Mild diffuse wo guarding or rebound) Back Exam: normal inspection, normal range of motion Extremity Exam: normal inspection, normal range of motion Neurologic Exam: alert, oriented x 3, cooperative, manager shipping II-XII nml as tested, normal mood/affect, nml cerebellar function, nml station & gait Skin Exam: normal color, warm, dry Lymphatic Exam: No adenopathy SpO2 Interpretation: normal SpO2: 98 O2 Delivery: Room Air - Course EKG Interpreted by Me: RATE (NSR/R94/Hyperdynamic/Prolonged QTc/Nonspecific ST changes) - CT Exams Head CT Interpretation: Discussed w/radiologist (NAD) Abdomen/Pelvis CT Interpretation: Discussed w/radiologist (Nothing acute) Ordered Tests: Active Orders 24 hr Category Date Time Status EKG-ER Only STAT Care 10/26/20 13:15 Completed IV Insertion STAT Care 10/26/20 13:15 Completed NPO Diet 10/26/20 16:09 Active ABDOMEN AND PELVIS W/0 CONTRAS [CT] Stat Exams 10/26/20 14:22 Completed HEAD WITHOUT CONTRAST [CT] Stat Exams 10/26/20 14:21 Completed US ABDOMEN LIMITED [ABDOMINAL-LIMITED] [US] Stat Exams 10/26/20 16:28 Completed AMYLASE Stat Lab 10/26/20 13:30 Completed CBC W DIFF AM.LAB Lab 10/27/20 04:00 Ordered CBC W DIFF Stat Lab 10/26/20 13:30 Completed CMP AM.LAB Lab 10/27/20 04:00 Ordered CMP Stat Lab 10/26/20 13:30 Completed LIPASE Stat Lab 10/26/20 13:30 Completed TROPONIN Q3H Lab 10/26/20 13:30 Completed TROPONIN Q3H Lab 10/26/20 16:25 Completed TROPONIN Q3H Lab 10/26/20 19:08 Completed TROPONIN Q3H Lab 10/26/20 22:13 Completed TROPONIN Q3H Lab 10/27/20 01:15 Ordered Transfer Order Routine Transfer 10/26/20 Completed Medication Summary Generic Name Dose Route Start Last Admin Trade Name Freq PRN Reason Stop Dose Admin Sodium Chloride 1,000 mls @ 150 mls/hr 10/26/20 16:15 10/26/20 23:15 Sodium Chloride 0.9% 1000 Ml IV 11/25/20 16:14 150 mls/hr .Q6H40M SANTA Administration Morphine Sulfate 5 mg 10/26/20 21:46 10/26/20 21:59 Morphine Sulfate 10 Mg/Ml IV 10/31/20 21:45 5 mg Q4H PRN PRN Administration PAIN Ondansetron HCl 4 mg 10/26/20 16:06 10/26/20 18:42 Zofran 4 Mg/2 Ml Vial IV 11/25/20 16:05 4 mg Q6H PRN PRN Administration NAUSEA/VOMITING Pantoprazole Sodium 40 mg 10/27/20 10:00 Protonix 40 Mg Iv IV 11/26/20 09:59 Q24H10 SANTA Prochlorperazine Edisylate 10 mg 10/26/20 16:11 10/26/20 19:57 Compazine 10 Mg/2 Ml IV 11/25/20 16:10 10 mg Q6H PRN PRN Administration NAUSEA/VOMITING Discontinued Medications Generic Name Dose Route Start Last Admin Trade Name Freq PRN Reason Stop Dose Admin Clonidine HCl 0.2 mg 10/26/20 17:15 10/26/20 17:05 Catapres Tts-2 Patch TOP 11/25/20 17:14 0.2 mg Q7D SANTA Administration Sodium Chloride 1,000 mls @ 999 mls/hr 10/26/20 13:15 10/26/20 14:31 Sodium Chloride 0.9% 1000 Ml IV 10/26/20 14:15 Infused .Q1H1M STA Infusion Sodium Chloride Confirm 10/26/20 13:26 Sodium Chloride 0.9% 1000 Ml Administered 10/26/20 13:27 Dose 1,000 mls @ ud .ROUTE .[employer]-MED ONE Prochlorperazine Edisylate 10 mg 10/26/20 13:16 10/26/20 13:27 Compazine 10 Mg/2 Ml IV 10/26/20 13:17 10 mg STAT ONE Administration Prochlorperazine Edisylate Confirm 10/26/20 13:25 Compazine 10 Mg/2 Ml Administered 10/26/20 13:26 Dose 10 mg .ROUTE .K-MED ONE Lab/Rad Data: Laboratory Result Diagrams 10/26/20 13:30 10/26/20 13:30 Laboratory Results 10/26/20 10/26/20 10/26/20 Range/Units 16:25 15:34 13:30 WBC (4.0-10.5) K/mm3 RBC (4.1-5.6) M/mm3 Hgb (12.5-18.0) gm/dl Hct (42-50) % MCV (78-100) fl MCH (26-32) pg MCHC (32-36) g/dl RDW (11.5-14.0) % Plt Count (150-450) K/mm3 MPV (7.5-11.0) fl Gran % (36.0-66.0) % Eos # (Auto) (0-0.5) Absolute Lymphs (auto) (1.0-4.6) Absolute Monos (auto) (0.0-1.3) Lymphocytes % (24.0-44.0) % Monocytes % (0.0-12.0) % Eosinophils % (0.00-5.0) % Basophils % (0.0-0.4) % Absolute Granulocytes (1.4-6.9) Basophils # (0-0.4) Sodium 132 L (137-145) mmol/L Potassium 3.9 (3.5-5.1) mmol/L Chloride 80 L (98-107) mmol/L Carbon Dioxide 37 H (22-30) mmol/L Anion Gap 19.1 H (5-15) MEQ/L BUN 45 H (9-20) mg/dL Creatinine 1.75 H (0.66-1.25) mg/dL Estimated GFR 45.0 ML/MIN Glucose 123 H (74-106) mg/dL Calcium 10.5 H (8.4-10.2) mg/dL Total Bilirubin 1.30 (0.2-1.3) mg/dL AST 59 (17-59) U/L ALT 23 (0-50) U/L Alkaline Phosphatase 68 (38-126) U/L Troponin I < 0.012 (0.000-0.034) ng/mL Serum Total Protein 8.7 H (6.3-8.2) g/dL Albumin 5.3 H (3.5-5.0) g/dL Amylase 71 (30-110) U/L Lipase 68 (23-300) U/L SARS-CoV-2 (PCR) NEGATIVE (NEGATIVE) 10/26/20 10/26/20 Range/Units 13:30 13:30 WBC 11.6 H (4.0-10.5) K/mm3 RBC 5.73 H (4.1-5.6) M/mm3 Hgb 17.5 (12.5-18.0) gm/dl Hct 51.5 H (42-50) % MCV 89.9 (78-100) fl MCH 30.5 (26-32) pg MCHC 34.0 (32-36) g/dl RDW 12.2 (11.5-14.0) % Plt Count 223 (150-450) K/mm3 MPV 10.5 (7.5-11.0) fl Gran % 64.2 (36.0-66.0) % Eos # (Auto) 0.07 (0-0.5) Absolute Lymphs (auto) 2.59 (1.0-4.6) Absolute Monos (auto) 1.49 H (0.0-1.3) Lymphocytes % 22.3 L (24.0-44.0) % Monocytes % 12.8 H (0.0-12.0) % Eosinophils % 0.6 (0.00-5.0) % Basophils % 0.1 (0.0-0.4) % Absolute Granulocytes 7.48 H (1.4-6.9) Basophils # 0.01 (0-0.4) Sodium (137-145) mmol/L Potassium (3.5-5.1) mmol/L Chloride (98-107) mmol/L Carbon Dioxide (22-30) mmol/L Anion Gap (5-15) MEQ/L BUN (9-20) mg/dL Creatinine (0.66-1.25) mg/dL Estimated GFR ML/MIN Glucose (74-106) mg/dL Calcium (8.4-10.2) mg/dL Total Bilirubin (0.2-1.3) mg/dL AST (17-59) U/L ALT (0-50) U/L Alkaline Phosphatase (38-126) U/L Troponin I < 0.012 (0.000-0.034) ng/mL Serum Total Protein (6.3-8.2) g/dL Albumin (3.5-5.0) g/dL Amylase (30-110) U/L Lipase (23-300) U/L SARS-CoV-2 (PCR) (NEGATIVE) - Progress Progress Note: 10/26/20 15:52 1L NS bolus/10mg IV compazine 10/26/20 16:[address] Castellanos 10/26/20 16:41 RUQ US neg per tech 10/26/20 23:22 No vomiting observed after 10mg IV Compazine 10/26/20 23:24 0.2 clonidine patch placed on pt w immediate blood pressure drop. Patch removed w increase in BP. Discussed with : Veronika Counseled pt/family regarding: lab results, diagnosis, rad results - Departure Clinical Impression: Dehydration, Hyperemesis Condition: Stable Critical Care Time: No
[2020-10-26 14:04] LABS: ALBUMIN 5.3 g/dL (3.5-5.0); ANION GAP 19.1 MEQ/L (5-15); BILIRUBIN,TOTAL 1.3 mg/dL (0.2-1.3); Calcium 10.5 mg/dL (8.4-10.2); Creatinine 1 1.75 mg/dL (0.66-1.25); Potassium 3.9 mmol/L (3.5-5.1); Total Protein 8.7 g/dL (6.3-8.2)
--- NOTE | 2020-10-26 15:01 | XRAY ---
Indication: Headache, nausea, dehydration. Multiple contiguous axial images obtained through the head without contrast. Comparison: None Normal appearing brain parenchyma, ventricles, and bony calvarium. Visualized paranasal sinuses and mastoid air cells are clear. Impression: Normal CT head without contrast exam.
--- NOTE | 2020-10-26 15:06 | XRAY ---
Indication: Abdomen pain, nausea, vomiting, dehydration. Multiple contiguous axial images obtained through the abdomen and pelvis without contrast. Comparison: October 23, 2020. Lung bases again demonstrates minimal dependent atelectasis. No infiltrate or effusion. Heart not enlarged. Noncontrasted stomach and bowel loops are nonobstructed. Previous reported appendectomy. Radiopacity in the ascending colon presumed ingested barium, bismuth, or medication. Gallbladder demonstrates new dense intraluminal radiopacity presumed iatrogenic and possibly related to radiopacity in the ascending colon. No free fluid/air. Stable small hepatic cysts and tiny right renal cysts. Remaining pancreas, spleen, adrenal glands, kidneys, ureters, and bladder are unremarkable for noncontrast exam. Stable minimal aortoiliac calcification without AAA. Impression: 1. New gallbladder intraluminal dense radiopacity presumed iatrogenic. Highly doubtful for gallstones/gravel since the CT 3 days ago. 2. Again incidental hepatic/right renal cysts. 3. Remaining CT abdomen/pelvis without contrast exam is negative.
--- NOTE | 2020-10-26 16:38 | XRAY ---
Indication: Abdomen pain, nausea, and vomiting. Two-dimensional gallbladder sonogram performed. Comparison: None Liver demonstrates a few cysts, largest in the left lobe measuring 2 cm. Remaining visualized liver, gallbladder, pancreas, and right kidney sonographically normal. Common bile duct measures 3.9 mm. No intrahepatic biliary distention or ascites. Right kidney measures 12.1 cm in length. Impression: Hepatic cysts. Remaining gallbladder sonogram is negative.
[2020-10-26] MEDS: Sodium Chloride 0.9% 1000 ML 1,000 ML IV SCH ×2 (16:54→23:15)
[2020-10-26] MEDS ORDERED: Catapres TTS-2 PATCH TOP SCH (17:15)
[2020-10-26] MEDS: Zofran 4 MG/2 ML VIAL IV PRN (18:42)
[2020-10-26] MEDS: Compazine 10 MG/2 ML IV PRN (19:57)
[2020-10-26] MEDS ORDERED: MORPHINE SULFATE 10 MG/ML IV PRN (21:46)
[2020-10-27] MEDS: Compazine 10 MG/2 ML IV PRN ×2 (02:51→14:04)
[2020-10-27 05:01] LABS: Absolute Neutrophil Ct (ANC) 5.13 (1.4-6.9); BASOPHIL % 0.2 % (0.0-0.4); Basophil (Absolute #) 0.02 (0-0.4); Eosinophil % 0.9 % (0.00-5.0); Eosinophil (Absolute #) 0.08 (0-0.5); Hematocrit 45.5 % (42-50); Hemoglobin 15.2 gm/dl (12.5-18.0); Lymphocyte (Absolute #) 2.07 (1.0-4.6); Lymphocytes % 24.5 % (24.0-44.0); Mean Cell Volume 91.2 fl (78-100); Mean Corpuscular Hemoglobin 30.5 pg (26-32); Mean Corpuscular Hgb Concent. 33.4 g/dl (32-36); Mean Platelet Volume 10.1 fl (7.5-11.0); Monocyte (Absolute #) 1.14 (0.0-1.3); Monocytes % 13.5 % (0.0-12.0); Neutrophil % 60.9 % (36.0-66.0); Platelet Count 194 K/mm3 (150-450); Red Blood Count 4.99 M/mm3 (4.1-5.6); Red Cell Distribution Width 11.9 % (11.5-14.0); White Blood Count 8.4 K/mm3 (4.0-10.5)
[2020-10-27 05:15] LABS: ALKALINE PHOSPHATASE 51 U/L (38-126); ANION GAP 11.8 MEQ/L (5-15); BLOOD UREA NITROGEN 26 mg/dL (9-20); CHLORIDE 94 mmol/L (98-107); Calcium 8.6 mg/dL (8.4-10.2); Carbon Dioxide 29 mmol/L (22-30); Creatinine 1 0.85 mg/dL (0.66-1.25); EST GLOMERULAR FILTRATION RATE > 60.0 ML/MIN; Glucose 107 mg/dL (74-106); Potassium 3.4 mmol/L (3.5-5.1); SGOT/AST 47 U/L (17-59); SGPT/ALT 18 U/L (0-50); SODIUM 131 mmol/L (137-145); Total Protein 6.9 g/dL (6.3-8.2)
[2020-10-27] MEDS ORDERED: Sodium Chloride 0.9% 1000 ML 1,000 ML ONE (05:52)
[2020-10-27] MEDS: Sodium Chloride 0.9% 1000 ML 1,000 ML IV SCH (05:52)
[2020-10-27] MEDS ORDERED: Zofran 4 MG/2 ML VIAL ONE (06:23)
[2020-10-27] MEDS: Zofran 4 MG/2 ML VIAL IV PRN ×2 (06:25→12:43)
--- NOTE | 2020-10-27 09:07 | PCM.HP ---
History of Present Illness - Chief Complaint Chief Complaint: hyperemesis History of Present Illness: is a 45 year old male pt with no local MD (will be seeing me) who came to ER c/o 4d of N/V and diaphoresis. Has periodic episodes of same. No fever. In ER found to have ABEBE. Was given clonidine patch for hypertension on admission'; caused hypotension so it was d/c'd within minutes. Pt had not urinated x 2-3d. Now has urinated several times. Question of syncope 3d ago. C/o abd pain last night, 8/10, supraumbilical and RUQ/LUQ, resolved with morphine. c/o CP intermittently, 5/10, sharp, L sided/substernal, sharp, lasting 1 min. - Review of Systems Constitutional: Weakness Ears, Nose, & Throat: Throat Pain (from vomiting) Cardiac: Chest Pain, Other (tachycardia with intermittent bradycardia to 38 per SO) Abdominal/Gastrointestinal: Abdominal Pain, Nausea, Vomiting Neurological: Headache (intermittent) Psychological: Depression, No Suicidal Ideations, No Homicidal Ideations All Other Systems: Reviewed and Negative Medications & Allergies Home Medications: Home Medication List No Reportable Medications [No Reported Medications] 10/26/20 [History Confirmed 10/26/20] Allergies/Adverse Reactions: Allergies Allergy/AdvReac Type Severity Reaction Status Date / Time No Known Drug Allergies Allergy Verified 10/26/20 13:21 - Past Medical History Past Medical History: Yes Neurological History: No Pertinent History ENT History: No Pertinent History Cardiac History: No Pertinent History Respiratory History: No Pertinent History Endocrine Medical History: No Pertinent History Musculoskelatal History: No Pertinent History GI Medical History: No Pertinent History History: No Pertinent History Pyscho-Social History: Bipolar Comment: . - Past Surgical History Past Surgical History: Yes Neuro Surgical History: No Pertinent History Cardiac History: No Pertinent History Respiratory Surgery: No Pertinent History GI Surgical History: Appendectomy Genitourinary Surgical Hx: No Pertinent History Musculskeletal Surgical Hx: No Pertinent History Male Surgical History: No Pertinent History - Social History Smoking Status: Current every day smoker How long have you smoked: years Exposure to second hand smoke: Yes Alcohol: Occasionally Drug Use: marijuana Significant Family History: no pertinent family hx - Physical Exam Vital Signs: Vital Signs - 24 hr Temp Pulse Resp BP Pulse Ox 10/27/20 08:00 97.7 F 93 H 22 107/68 100 10/27/20 04:00 98.4 F 97 H 16 113/64 97 10/27/20 00:00 98.9 F 104 H 16 128/72 96 10/26/20 23:25 98 10/26/20 20:06 98.6 F 109 H 16 132/77 97 10/26/20 20:00 16 10/26/20 18:22 98.6 F 109 H 16 132/77 97 10/26/20 17:50 98.6 F 109 H 16 132/77 97 10/26/20 17:49 98.6 F 109 H 16 132/77 97 10/26/20 16:57 94 H 151/107 95 10/26/20 15:09 92 H 16 170/110 98 10/26/20 14:15 92 H 18 165/115 94 L 10/26/20 13:09 98.6 F 114 H 134/115 98 General Appearance: no apparent distress, alert Neurologic Exam: oriented x 3, cooperative Eye Exam: eyes nml inspection Ears, Nose, Throat Exam: moist mucous membranes Neck Exam: normal inspection, non-tender, No lymphadenopathy Respiratory Exam: normal breath sounds, lungs clear, No crackles/rales, No rhonchi, No wheezing Cardiovascular Exam: regular rate/rhythm, normal heart sounds, No murmur Gastrointestinal/Abdomen Exam: soft, No normal bowel sounds (hypactive but present), No tenderness, No distention, No mass, No guarding, No rebound Back Exam: normal inspection, No rash Extremity Exam: normal inspection, No pedal edema, No swelling Skin Exam: normal color, warm, dry, No rash Results - Labs Lab/Micro Results: Lab Results-Last 24 Hours 10/26/20 10/26/20 10/26/20 Range/Units 13:30 13:30 13:30 WBC 11.6 H (4.0-10.5) K/mm3 RBC 5.73 H (4.1-5.6) M/mm3 Hgb 17.5 (12.5-18.0) gm/dl Hct 51.5 H (42-50) % MCV 89.9 (78-100) fl MCH 30.5 (26-32) pg MCHC 34.0 (32-36) g/dl RDW 12.2 (11.5-14.0) % Plt Count 223 (150-450) K/mm3 MPV 10.5 (7.5-11.0) fl Gran % 64.2 (36.0-66.0) % Eos # (Auto) 0.07 (0-0.5) Absolute Lymphs (auto) 2.59 (1.0-4.6) Absolute Monos (auto) 1.49 H (0.0-1.3) Lymphocytes % 22.3 L (24.0-44.0) % Monocytes % 12.8 H (0.0-12.0) % Eosinophils % 0.6 (0.00-5.0) % Basophils % 0.1 (0.0-0.4) % Absolute Granulocytes 7.48 H (1.4-6.9) Basophils # 0.01 (0-0.4) Sodium 132 L (137-145) mmol/L Potassium 3.9 (3.5-5.1) mmol/L Chloride 80 L (98-107) mmol/L Carbon Dioxide 37 H (22-30) mmol/L Anion Gap 19.1 H (5-15) MEQ/L BUN 45 H (9-20) mg/dL Creatinine 1.75 H (0.66-1.25) mg/dL Estimated GFR 45.0 ML/MIN Glucose 123 H (74-106) mg/dL Calcium 10.5 H (8.4-10.2) mg/dL Total Bilirubin 1.30 (0.2-1.3) mg/dL AST 59 (17-59) U/L ALT 23 (0-50) U/L Alkaline Phosphatase 68 (38-126) U/L Troponin I < 0.012 (0.000-0.034) ng/mL Serum Total Protein 8.7 H (6.3-8.2) g/dL Albumin 5.3 H (3.5-5.0) g/dL Amylase 71 (30-110) U/L Lipase 68 (23-300) U/L SARS-CoV-2 (PCR) (NEGATIVE) 10/26/20 10/26/20 10/26/20 Range/Units 15:34 16:25 19:08 WBC (4.0-10.5) K/mm3 RBC (4.1-5.6) M/mm3 Hgb (12.5-18.0) gm/dl Hct (42-50) % MCV (78-100) fl MCH (26-32) pg MCHC (32-36) g/dl RDW (11.5-14.0) % Plt Count (150-450) K/mm3 MPV (7.5-11.0) fl Gran % (36.0-66.0) % Eos # (Auto) (0-0.5) Absolute Lymphs (auto) (1.0-4.6) Absolute Monos (auto) (0.0-1.3) Lymphocytes % (24.0-44.0) % Monocytes % (0.0-12.0) % Eosinophils % (0.00-5.0) % Basophils % (0.0-0.4) % Absolute Granulocytes (1.4-6.9) Basophils # (0-0.4) Sodium (137-145) mmol/L Potassium (3.5-5.1) mmol/L Chloride (98-107) mmol/L Carbon Dioxide (22-30) mmol/L Anion Gap (5-15) MEQ/L BUN (9-20) mg/dL Creatinine (0.66-1.25) mg/dL Estimated GFR ML/MIN Glucose (74-106) mg/dL Calcium (8.4-10.2) mg/dL Total Bilirubin (0.2-1.3) mg/dL AST (17-59) U/L ALT (0-50) U/L Alkaline Phosphatase (38-126) U/L Troponin I < 0.012 0.013 (0.000-0.034) ng/mL Serum Total Protein (6.3-8.2) g/dL Albumin (3.5-5.0) g/dL Amylase (30-110) U/L Lipase (23-300) U/L SARS-CoV-2 (PCR) NEGATIVE (NEGATIVE) 10/26/20 10/27/20 10/27/20 Range/Units 22:13 01:00 04:54 WBC 8.4 (4.0-10.5) K/mm3 RBC 4.99 (4.1-5.6) M/mm3 Hgb 15.2 (12.5-18.0) gm/dl Hct 45.5 (42-50) % MCV 91.2 (78-100) fl MCH 30.5 (26-32) pg MCHC 33.4 (32-36) g/dl RDW 11.9 (11.5-14.0) % Plt Count 194 (150-450) K/mm3 MPV 10.1 (7.5-11.0) fl Gran % 60.9 (36.0-66.0) % Eos # (Auto) 0.08 (0-0.5) Absolute Lymphs (auto) 2.07 (1.0-4.6) Absolute Monos (auto) 1.14 (0.0-1.3) Lymphocytes % 24.5 (24.0-44.0) % Monocytes % 13.5 H (0.0-12.0) % Eosinophils % 0.9 (0.00-5.0) % Basophils % 0.2 (0.0-0.4) % Absolute Granulocytes 5.13 (1.4-6.9) Basophils # 0.02 (0-0.4) Sodium (137-145) mmol/L Potassium (3.5-5.1) mmol/L Chloride (98-107) mmol/L Carbon Dioxide (22-30) mmol/L Anion Gap (5-15) MEQ/L BUN (9-20) mg/dL Creatinine (0.66-1.25) mg/dL Estimated GFR ML/MIN Glucose (74-106) mg/dL Calcium (8.4-10.2) mg/dL Total Bilirubin (0.2-1.3) mg/dL AST (17-59) U/L ALT (0-50) U/L Alkaline Phosphatase (38-126) U/L Troponin I 0.018 0.019 (0.000-0.034) ng/mL Serum Total Protein (6.3-8.2) g/dL Albumin (3.5-5.0) g/dL Amylase (30-110) U/L Lipase (23-300) U/L SARS-CoV-2 (PCR) (NEGATIVE) 10/27/20 Range/Units 04:54 WBC (4.0-10.5) K/mm3 RBC (4.1-5.6) M/mm3 Hgb (12.5-18.0) gm/dl Hct (42-50) % MCV (78-100) fl MCH (26-32) pg MCHC (32-36) g/dl RDW (11.5-14.0) % Plt Count (150-450) K/mm3 MPV (7.5-11.0) fl Gran % (36.0-66.0) % Eos # (Auto) (0-0.5) Absolute Lymphs (auto) (1.0-4.6) Absolute Monos (auto) (0.0-1.3) Lymphocytes % (24.0-44.0) % Monocytes % (0.0-12.0) % Eosinophils % (0.00-5.0) % Basophils % (0.0-0.4) % Absolute Granulocytes (1.4-6.9) Basophils # (0-0.4) Sodium 131 L (137-145) mmol/L Potassium 3.4 L (3.5-5.1) mmol/L Chloride 94 L D (98-107) mmol/L Carbon Dioxide 29 (22-30) mmol/L Anion Gap 11.8 (5-15) MEQ/L BUN 26 H (9-20) mg/dL Creatinine 0.85 (0.66-1.25) mg/dL Estimated GFR > 60.0 ML/MIN Glucose 107 H (74-106) mg/dL Calcium 8.6 D (8.4-10.2) mg/dL Total Bilirubin 1.20 (0.2-1.3) mg/dL AST 47 (17-59) U/L ALT 18 (0-50) U/L Alkaline Phosphatase 51 (38-126) U/L Troponin I (0.000-0.034) ng/mL Serum Total Protein 6.9 (6.3-8.2) g/dL Albumin 4.0 (3.5-5.0) g/dL Amylase (30-110) U/L Lipase (23-300) U/L SARS-CoV-2 (PCR) (NEGATIVE) - Radiology Impressions Radiology Exams & Impressions: Radiology Procedures Category Date Time Status ABDOMEN AND PELVIS W/0 CONTRAS [CT] Stat Exams 10/26/20 14:22 Completed HEAD WITHOUT CONTRAST [CT] Stat Exams 10/26/20 14:21 Completed US ABDOMEN LIMITED [ABDOMINAL-LIMITED] [US] Stat Exams 10/26/20 16:28 Completed Assessment/Plan (1) Dehydration Current Visit: Yes Status: Resolved Code(s): E86.0 - DEHYDRATION (2) Hyperemesis Current Visit: Yes Status: Resolved Assessment & Plan: restart liquid diet slowly; if franklin CLD at breakfast, can have FLD at lunch with crackers and toast. Is recurrent. Discussed possible link to THC, but pt does not think he uses that much. Would send home on scopolamine patches. Code(s): R11.10 - VOMITING, UNSPECIFIED (3) Abdominal pain, bilateral upper quadrant Current Visit: No Status: Acute Assessment & Plan: HIDA scan outpatient. Code(s): R10.11 - RIGHT UPPER QUADRANT PAIN; R10.12 - LEFT UPPER QUADRANT PAIN (4) Chest pain Current Visit: No Status: Chronic Qualifiers: Chest pain type: other chest pain Qualified Code(s): R07.89 - Other chest pain; R07.8 - Other chest pain Assessment & Plan: Would like pt to consider outpatient regular treadmill. Code(s): R07.9 - CHEST PAIN, UNSPECIFIED (5) Bradycardia Current Visit: Yes Status: Acute Assessment & Plan: Will have pt do outpatient Holter monitor next week. Code(s): R00.1 - BRADYCARDIA, UNSPECIFIED (6) Depression Current Visit: Yes Status: Chronic Qualifiers: Depression Type: reactive depression Qualified Code(s): F32.9 - Major depressive disorder, single episode, unspecified Code(s): F32.9 - MAJOR DEPRESSIVE DISORDER, SINGLE EPISODE, UNSPECIFIED
[2020-10-27] MEDS ORDERED: PROTONIX 40 MG IV IV SCH (10:00)
[2020-10-27 12:51] VITALS: O2SAT 98
[2020-10-27 16:57] VITALS: BP 127/66; PULSE 97
== END 2020-10-27 18:03 | disposition home or self-care (01) ==
LOC: ED 13:05 → MED SURG 17:40
PROVIDERS: ADMIT Family Medicine; ATTEND Family Medicine
DX: E86.0 Dehydration (principal); R10.84 Generalized abdominal pain; R11.2 Nausea with vomiting, unspecified; R51.9 Headache, unspecified; R10.11 Right upper quadrant pain; R10.12 Left upper quadrant pain; R07.9 Chest pain, unspecified; R00.1 Bradycardia, unspecified; F32.9 Major depressive disorder, single episode, unspecified; Z20.828 Contact with and (suspected) exposure to other viral communicable diseases; R61 Generalized hyperhidrosis; N17.9 Acute kidney failure, unspecified; F17.200 Nicotine dependence, unspecified, uncomplicated
CPT/HCPCS: 36000; 36415; 70450; 74176; 76705; 80053; 82150; 83690; 84484; 85025; 93005; 96360; 96374; 99285; U0003; G0378; J2270; J2405; A9270-GY

== ENCOUNTER 2020-11-07 19:29 | Emergency (ER) | payer MEDICARE ==
--- NOTE | 2020-11-07 19:33 | ERPHSYRPT ---
- History of Present Illness Time Seen by Provider: 11/07/20 19:33 Source: patient Exam Limitations: no limitations Physician History: This is a right-handed 45-year-old -[place] male who was playing with his dog at home and the dog bit his left index finger on the radial aspect. Patient arrives with no obvious foreign body within the laceration site and no active bleeding. Patient's tetanus status is not up-to-date. The dog has not had his vaccinations up-to-date. The dog was playful and the patient was attempting to pull a toy out of his mouth and the dog's tooth caught him. The dog was acting completely normal. Timing/Duration: today Quality: painful Severity: mild Location: hands (Left index finger) Possible Causes: other (Dog bite) Associated Symptoms: denies symptoms Allergies/Adverse Reactions: No Known Drug Allergies Allergy (Verified 11/07/20 19:42) Hx Tetanus, Diphtheria Vaccination/Date Given: No Hx Influenza Vaccination/Date Given: No Hx Pneumococcal Vaccination/Date Given: No Travel Risk - International Travel Have you traveled outside of the country in past 3 weeks: No - Coronavirus Screening Are you exhibiting any of the following symptoms?: No Close contact with a COVID-19 positive Pt in past 14-21 Days: No - Vaccine Status Have you recieved a Covid-19 vaccination: No - Review of Systems Constitutional: No Symptoms Eyes: No Symptoms Ears, Nose, & Throat: No Symptoms Respiratory: No Symptoms Cardiac: No Symptoms Abdominal/Gastrointestinal: No Symptoms Genitourinary Symptoms: No Symptoms Musculoskeletal: Injury (Dog bite left index finger) Skin: No Symptoms (Dog bite left index finger) Neurological: No Symptoms Psychological: No Symptoms Endocrine: No Symptoms Hematologic/Lymphatic: No Symptoms Immunological/Allergic: No Symptoms All Other Systems: Reviewed and Negative - Past Medical History Pertinent Past Medical History: Yes Neurological History: No Pertinent History ENT History: No Pertinent History Cardiac History: No Pertinent History Respiratory History: No Pertinent History Endocrine Medical History: No Pertinent History Musculoskeletal History: No Pertinent History GI Medical History: No Pertinent History History: No Pertinent History Psycho-Social History: Bipolar Other Medical History: . - Past Surgical History Past Surgical History: Yes Neuro Surgical History: No Pertinent History Cardiac: No Pertinent History Respiratory: No Pertinent History Gastrointestinal: Appendectomy Genitourinary: No Pertinent History Musculoskeletal: No Pertinent History Male Surgical History: No Pertinent History - Social History Smoking Status: Current every day smoker How long have you smoked: years Exposure to second hand smoke: Yes Drug Use: marijuana Patient Lives Alone: No Significant Family History: no pertinent family hx - Nursing Vital Signs Nursing Vital Signs: Initial Vital Signs Temperature 98.0 F 11/07/20 19:44 Pulse Rate 86 11/07/20 19:44 Respiratory Rate 18 11/07/20 19:44 Blood Pressure 158/103 11/07/20 19:44 O2 Sat by Pulse Oximetry 100 11/07/20 19:44 Pain Scale Pain Intensity 5 - Physical Exam General Appearance: no apparent distress, alert, anxiety Eye Exam: PERRL/EOMI Ears, Nose, Throat Exam: normal ENT inspection, moist mucous membranes Neck Exam: normal inspection, non-tender, supple, full range of motion Respiratory Exam: normal breath sounds, lungs clear, airway intact, No chest tenderness, No respiratory distress Gastrointestinal/Abdomen Exam: No tenderness Rectal Exam: not done Back Exam: normal inspection, normal range of motion, No CVA tenderness, No vertebral tenderness Extremity Exam: tenderness (Approximately 5 cm radial aspect left index finger superficial laceration. Neurovascularly intact. Tendon function intact. No foreign body and no active bleeding.) Neurologic Exam: alert, oriented x 3, cooperative, cotton broker II-XII nml as tested, normal mood/affect, nml cerebellar function, nml station & gait, sensation nml Procedures - Laceration/Wound Repair Left Lateral Finger Time of Procedure: 20:50 Wound Location: Left, hand (Index finger) Wound Length (cm): 3 Wound's Depth, Shape: superficial, linear Wound Explored: clean (No foreign body noted. Evaluation was made to the base in a bloodless field.) Irrigated: Yes Hibiclens Prep: Yes Anesthesia: topical Wound Repaired With: Steri-strips (After benzoin was placed along the laceration line) - Course Nursing assessment & vital signs reviewed: Yes Ordered Tests: Medication Summary Discontinued Medications Generic Name Dose Route Start Last Admin Trade Name Freq PRN Reason Stop Dose Admin Diphtheria/Tetanus/Acell Pertussis 0.5 ml 11/07/20 19:44 11/07/20 20:06 Adacel Vial IM 11/07/20 19:45 0.5 ml .ONCE ONE Administration Diphtheria/Tetanus/Acell Pertussis Confirm 11/07/20 20:07 Adacel Vial Administered 11/07/20 20:08 Dose 0.5 ml IM .STK-MED ONE Lidocaine/Prilocaine 2.5 gm 11/07/20 19:44 11/07/20 20:13 Emla Cream 5 Gm TP 11/07/20 19:45 2.5 gm STAT ONE Administration Lidocaine/Prilocaine Confirm 11/07/20 20:05 Emla Cream 5 Gm Administered 11/07/20 20:06 Dose 5 gm TP .STK-MED ONE - Progress Progress: improved Progress Note: 11/07/20 21:02 Patient did not want any narcotic pain medicine. He did not want Tylenol or ibuprofen Counseled pt/family regarding: diagnosis, need for follow-up - Departure Departure Disposition: Home Clinical Impression: Finger laceration Condition: Stable Critical Care Time: No Referrals: LEONORA VILLATORO [Primary Care Provider] - Additional Instructions: Keep site dry for 24 hours. After 24 hours, may wash site daily. Take antibiotics as prescribed. Take it with food. Follow-up with primary care physician for further management. Prescriptions: Amoxicillin/Potassium Clav [Augmentin 500-125 Tablet] 1 each PO TID 5 Days tablet
[2020-11-07] MEDS ORDERED: Adacel Vial IM ONE ×2 (19:44→20:07)
[2020-11-07] MEDS ORDERED: EMLA Cream 5 GM TP ONE ×2 (19:44→20:05)
[2020-11-07 21:01] VITALS: O2SAT 99
[2020-11-07] MEDS ORDERED: Augmentin 500-125 Tablet PO ONE (21:07)
[2020-11-07] MEDS ORDERED: Augmentin 500-125 Tablet ONE (21:10)
[2020-11-07 21:25] VITALS: BP 134/83; PULSE 88
== END 2020-11-07 21:25 | disposition home or self-care (01) ==
LOC: ED 19:29
DX: S61.251A Open bite of left index finger without damage to nail, initial encounter (principal); W54.0XXA Bitten by dog, initial encounter
CPT/HCPCS: 12002; 90471; 90715; 99283; A9270-GY

== ENCOUNTER 2022-09-09 11:43 | Emergency (ER) | payer MEDICARE ==
[2022-09-09] MEDS ORDERED: BENADRYL 50 MG/ML IV ONE (12:17)
[2022-09-09] MEDS ORDERED: Sodium Chloride 0.9% 1000 ML 1,000 ML IV STA (12:17)
[2022-09-09] MEDS ORDERED: MOTRIN 600 MG PO ONE (12:17)
[2022-09-09 12:33] VITALS: O2SAT 100
[2022-09-09] MEDS ORDERED: Sodium Chloride 0.9% 1000 ML 1,000 ML ONE (12:37)
[2022-09-09] MEDS ORDERED: BENADRYL 50 MG/ML ONE (12:37)
[2022-09-09] MEDS ORDERED: MOTRIN 600 MG ONE (12:37)
[2022-09-09] MEDS ORDERED: TORAdol 30 mg Injection IV ONE (12:40)
[2022-09-09] MEDS ORDERED: TORAdol 30 mg Injection ONE (12:40)
[2022-09-09 12:42] LABS: Absolute Neutrophil Ct (ANC) 8.75 x10^3/uL (1.4-6.9); BASOPHIL % 0.4 % (0.0-0.4); Basophil (Absolute #) 0.04 x10^3/uL (0-0.4); Eosinophil % 0.1 % (0.00-5.0); Eosinophil (Absolute #) 0.01 x10^3/uL (0-0.5); Hematocrit 45.3 % (42-50); Hemoglobin 15.3 g/dL (12.5-18.0); IMMATURE GRAN # 0.04 x10^3u/L (0.00-0.03); IMMATURE GRAN % 0.4 % (0.00-0.4); Lymphocyte (Absolute #) 1.26 x10^3/uL (1.0-4.6); Mean Cell Volume 92.3 fL (78-100); Mean Corpuscular Hemoglobin 31.2 pg (26-32); Mean Corpuscular Hgb Concent. 33.8 g/dL (32-36); Mean Platelet Volume 10.3 fL (7.5-11.0); Monocyte (Absolute #) 0.43 x10^3/uL (0.0-1.3); Monocytes % 4.1 % (0.0-12.0); Platelet Count 224 x10^3/uL (150-450); Red Blood Count 4.91 x10^6/uL (4.1-5.6); Red Cell Distribution Width 12.1 % (11.5-14.0); White Blood Count 10.5 x10^3/uL (4.0-10.5)
[2022-09-09 12:56] LABS: ALKALINE PHOSPHATASE 82 U/L (38-126); ANION GAP 19.4 MEQ/L (5-15); BLOOD UREA NITROGEN 11 mg/dL (9-20); CHLORIDE 105 mmol/L (98-107); Calcium 9.6 mg/dL (8.4-10.2); Carbon Dioxide 22 mmol/L (22-30); Creatinine 1 0.98 mg/dL (0.66-1.25); EST GLOMERULAR FILTRATION RATE > 60.0 ML/MIN; Glucose 177 mg/dL (74-106); LIPASE 58 U/L (23-300); Potassium 4.4 mmol/L (3.5-5.1); SGOT/AST 30 U/L (17-59); SGPT/ALT 18 U/L (0-50); SODIUM 142 mmol/L (137-145); Total Protein 8.6 g/dL (6.3-8.2)
--- NOTE | 2022-09-09 13:06 | XRAY ---
Indication: Abdominal pain and vomiting. Multiple contiguous axial images obtained through the abdomen and pelvis without contrast. Comparison: October 26, 2020 Lung bases remain clear. Heart is not enlarged. Noncontrasted stomach and bowel loops nonobstructed. Again appendectomy. No free fluid/air. Stable small hepatic cysts again largest left lobe. Remaining liver, gallbladder, pancreas, spleen, adrenal glands, kidneys, ureters, and bladder are unremarkable for noncontrast exam. There remains minimal aortoiliac calcifications without AAA. Osseous structures intact. No ventral or inguinal hernias. Impression: Stable hepatic cysts. Remaining CT abdomen/pelvis without contrast exam continues to be negative.
--- NOTE | 2022-09-09 13:16 | ERPHSYRPT ---
- History of Present Illness Time Seen by Provider: 09/09/22 12:06 Historian: patient Exam Limitations: no limitations Patient Subjective Stated Complaint: pt has abdominal migraines diagnosed by Dr. Castellanos about a year and a half ago and pt can usually get a hold on them with the meds but was unsuccessful this morning Triage Nursing Assessment: Pt brought to the ER by his , bradycardic, hypotensive, rates pain as 9/10, non stop vomiting, diaphoretic, lethargic, pulses normal, appears dehydrated, weak, in severe pain in the abdomen, stated that he had diarrhea this morning Physician History: 47-year-old -[place] male with history of cyclical vomiting syndrome presented to the ER with chief complaint of nausea vomiting abdominal pain started this morning with no relief taking his routine medications as patient was diagnosed with abdominal migraine. Reports having similar symptoms multiple times in the past. Patient is dry heaving while in the ER and sweaty. Timing/Duration: today, constant, gradual onset, worse Activities at Onset: rest Quality: cramping, sharpness Abdominal Pain Onset Location: generalized abdomen Pain Radiation: no radiation Severity of Pain-Max: severe Severity of Pain-Current: severe Modifying Factors: Worsens With: movement, palpation, vomiting Associated Symptoms: nausea, vomiting Previous symptoms: same symptoms as today Allergies/Adverse Reactions: No Known Drug Allergies Allergy (Verified 09/09/22 12:34) Home Medications: No Reportable Medications [No Reported Medications] 09/09/22 [History] Hx Tetanus, Diphtheria Vaccination/Date Given: No Hx Influenza Vaccination/Date Given: No Hx Pneumococcal Vaccination/Date Given: No Travel Risk - International Travel Have you traveled outside of the country in past 3 weeks: No - Coronavirus Screening Are you exhibiting any of the following symptoms?: No - Vaccine Status Have you recieved a Covid-19 vaccination: No - Review of Systems Constitutional: Fatigue, Weakness Eyes: No Symptoms Ears, Nose, & Throat: No Symptoms Respiratory: No Symptoms Cardiac: No Symptoms Abdominal/Gastrointestinal: Abdominal Pain, Nausea, Vomiting, Diarrhea Genitourinary Symptoms: No Symptoms Musculoskeletal: No Symptoms Neurological: No Symptoms Psychological: No Symptoms Endocrine: No Symptoms Hematologic/Lymphatic: No Symptoms Immunological/Allergic: No Symptoms - Past Medical History Pertinent Past Medical History: Yes Neurological History: Migraines ENT History: No Pertinent History Cardiac History: No Pertinent History Respiratory History: No Pertinent History Endocrine Medical History: No Pertinent History Musculoskeletal History: No Pertinent History GI Medical History: Other History: No Pertinent History Psycho-Social History: Bipolar Male Reproductive Disorders: No Pertinent History Other Medical History: abdominal migraines. - Past Surgical History Past Surgical History: Yes Neuro Surgical History: No Pertinent History Cardiac: No Pertinent History Respiratory: No Pertinent History Gastrointestinal: Appendectomy Genitourinary: No Pertinent History Musculoskeletal: No Pertinent History Male Surgical History: No Pertinent History - Social History Smoking Status: Current every day smoker How long have you smoked: years Exposure to second hand smoke: Yes Drug Use: marijuana Patient Lives Alone: No Significant Family History: no pertinent family hx - Nursing Vital Signs Nursing Vital Signs: Initial Vital Signs Temperature 96.0 F 09/09/22 12:02 Pulse Rate 52 L 09/09/22 12:02 Blood Pressure 104/79 09/09/22 12:02 O2 Sat by Pulse Oximetry 100 09/09/22 12:02 Pain Scale Pain Intensity 9 - Physical Exam General Appearance: no apparent distress, alert Eye Exam: PERRL/EOMI Ears, Nose, Throat Exam: normal ENT inspection Neck Exam: normal inspection, non-tender, supple, full range of motion Respiratory Exam: normal breath sounds, lungs clear Cardiovascular Exam: normal heart sounds, bradycardia Gastrointestinal/Abdomen Exam: soft, normal bowel sounds, tenderness (Mild to moderate generalized tenderness with no guarding or rebound) Extremity Exam: normal inspection, normal range of motion Neurologic Exam: alert, oriented x 3, cooperative Skin Exam: normal color SpO2 Interpretation: normal SpO2: 100 O2 Delivery: Room Air Ordered Tests: Active Orders 24 hr Category Date Time Status IV Insertion STAT Care 09/09/22 12:17 Active ABDOMEN AND PELVIS W/0 CONTRAS [CT] Stat Exams 09/09/22 12:19 Completed CBC W DIFF Stat Lab 09/09/22 12:40 Completed CMP Stat Lab 09/09/22 12:40 Completed LIPASE Stat Lab 09/09/22 12:40 Completed UA W/RFX UR CULTURE Stat Lab 09/09/22 12:18 Ordered Urine Triage Profile Stat Lab 09/09/22 12:18 Ordered Medication Summary Discontinued Medications Generic Name Dose Route Start Last Admin Trade Name Freq PRN Reason Stop Dose Admin Diphenhydramine HCl 50 mg 09/09/22 12:17 09/09/22 12:39 Diphenhydramine Hcl 50 Mg/Ml Vial IV 09/09/22 12:18 50 mg STAT ONE Administration Diphenhydramine HCl Confirm 09/09/22 12:37 Diphenhydramine Hcl 50 Mg/Ml Vial Administered 09/09/22 12:38 Dose 50 mg .ROUTE .STK-MED ONE Droperidol 1.25 mg 09/09/22 12:17 09/09/22 12:39 Droperidol 5 Mg/2 Ml Vial IV 09/09/22 12:18 1.25 mg STAT ONE Administration Droperidol Confirm 09/09/22 12:36 Droperidol 5 Mg/2 Ml Vial Administered 09/09/22 12:37 Dose 5 mg .ROUTE .STK-MED ONE Sodium Chloride 1,000 mls @ 999 mls/hr 09/09/22 12:17 09/09/22 14:16 Sodium Chloride 0.9% 1000 Ml IV 09/09/22 13:17 Infused .Q1H1M STA Infusion Sodium Chloride Confirm 09/09/22 12:37 Sodium Chloride 0.9% 1000 Ml Administered 09/09/22 12:38 Dose 1,000 mls @ ud .ROUTE .STK-MED ONE Ibuprofen 600 mg 09/09/22 12:17 09/09/22 12:41 Ibuprofen 600 Mg Tablet PO 09/09/22 12:18 Not Given STAT ONE Ibuprofen Confirm 09/09/22 12:37 Ibuprofen 600 Mg Tablet Administered 09/09/22 12:38 Dose 600 mg .ROUTE .STK-MED ONE Ketorolac Tromethamine 30 mg 09/09/22 12:40 09/09/22 12:41 Ketorolac Tromethamine 30 Mg/Ml Inj IV 09/09/22 12:41 30 mg STAT ONE Administration Ketorolac Tromethamine Confirm 09/09/22 12:40 Ketorolac Tromethamine 30 Mg/Ml Inj Administered 09/09/22 12:41 Dose 30 mg .ROUTE .STK-MED ONE Lab/Rad Data: Laboratory Result Diagrams 09/09/22 12:40 09/09/22 12:40 Laboratory Results 09/09/22 09/09/22 Range/Units 12:40 12:40 WBC 10.5 (4.0-10.5) x10^3/uL RBC 4.91 (4.1-5.6) x10^6/uL Hgb 15.3 (12.5-18.0) g/dL Hct 45.3 (42-50) % MCV 92.3 (78-100) fL MCH 31.2 (26-32) pg MCHC 33.8 (32-36) g/dL RDW 12.1 (11.5-14.0) % Plt Count 224 (150-450) x10^3/uL MPV 10.3 (7.5-11.0) fL Gran % 83.0 H (36.0-66.0) % Immature Gran % (Auto) 0.4 (0.00-0.4) % Nucleat RBC Rel Count 0.0 (0.00-0.1) % Eos # (Auto) 0.01 (0-0.5) x10^3/uL Immature Gran # (Auto) 0.04 H (0.00-0.03) x10^3u/L Absolute Lymphs (auto) 1.26 (1.0-4.6) x10^3/uL Absolute Monos (auto) 0.43 (0.0-1.3) x10^3/uL Absolute Nucleated RBC 0.00 (0.00-0.01) x10^3u/L Lymphocytes % 12.0 L (24.0-44.0) % Monocytes % 4.1 (0.0-12.0) % Eosinophils % 0.1 (0.00-5.0) % Basophils % 0.4 (0.0-0.4) % Absolute Granulocytes 8.75 H (1.4-6.9) x10^3/uL Basophils # 0.04 (0-0.4) x10^3/uL Sodium 142 (137-145) mmol/L Potassium 4.4 (3.5-5.1) mmol/L Chloride 105 (98-107) mmol/L Carbon Dioxide 22 (22-30) mmol/L Anion Gap 19.4 H (5-15) MEQ/L BUN 11 (9-20) mg/dL Creatinine 0.98 (0.66-1.25) mg/dL Estimated GFR > 60.0 ML/MIN Glucose 177 H (74-106) mg/dL Calcium 9.6 (8.4-10.2) mg/dL Total Bilirubin 0.70 (0.2-1.3) mg/dL AST 30 (17-59) U/L ALT 18 (0-50) U/L Alkaline Phosphatase 82 (38-126) U/L Serum Total Protein 8.6 H (6.3-8.2) g/dL Albumin 5.0 (3.5-5.0) g/dL Lipase 58 (23-300) U/L - Progress Progress: improved, re-examined Progress Note: 09/09/22 14:27 47-year-old is evaluated for abdominal pain with intractable nausea vomiting. Patient was diaphoretic and sweating on presentation. He is given symptomatic treatment with Toradol, Benadryl and Inapsine along with fluids. Work-up showed stable CBC and CMP consistent with some dehydration. CT abdomen pelvis is negative for any acute intra-abdominal findings. Patient on reevaluation is resting comfortably and no vomiting since that medications. I believe patient has cyclical vomiting syndrome and recommended continue with his home medications. Discussed signs symptoms of worsening needing return to ER which he seems understanding. Stable for discharge. Counseled pt/family regarding: lab results, diagnosis, need for follow-up, rad results, smoking cessation Medical Desision Making - Independent Historian Additional History obtained from: Spouse, Mother - External Record(s) Reviewed Records reviewed as a part of evaluation & management: Inpatient, Discharge Summary - Discussion of managment Reviewed:: Test results, Need for additional workup Agreed on:: Treatment plan, need for follow-up - Diagnostic Testing Diagnostic test were ordered, analyzed, and reviewed by me: Yes Radiological Interpretation: Reviewed by me - Risk of complications The pt has a mod risk of morbidity or mortality based on: Need for prescription drug management - Departure Departure Disposition: Home Clinical Impression: Cyclical vomiting syndrome Condition: Stable Critical Care Time: No Referrals: LEONORA DUMONT [Primary Care Provider] - Follow Up with PCP/3 days Instructions: Nausea and Vomiting, Adult (DC) Additional Instructions: Continue with your current home medications. Follow-up with primary care for reevaluation. Keep yourself well-hydrated. Return to ER for any worsening.
[2022-09-09 14:57] VITALS: BP 169/96; PULSE 64
== END 2022-09-09 14:57 | disposition home or self-care (01) ==
LOC: ED 11:43
DX: R11.15 Cyclical vomiting syndrome unrelated to migraine (principal); R10.84 Generalized abdominal pain; Z28.310 Unvaccinated for COVID-19; Z72.0 Tobacco use
CPT/HCPCS: 36415; 74176; 80053; 83690; 85025; 96360; 96374; 96375; 99284; J1200; J1885; A9270-GY

== ENCOUNTER 2024-06-18 02:39 | Emergency (ER) | payer MEDICARE ==
[2024-06-18 02:55] VITALS: PULSE 118; RESP 18; TEMP 100.6
--- NOTE | 2024-06-18 03:12 | ERPHSYRPT ---
- History of Present Illness Time Seen by Provider: 06/18/24 03:10 Source: patient Exam Limitations: no limitations Patient Subjective Stated Complaint: PT. STATES, "I HAVEN'T FELT WELL FOR A COUPLE DAYS, NO APPETITE, I HAVEN'T BEEN ABLE TO SLEEP, I CAN'T STOP COUGHING, MY RIBS AND MY BACK. I'M COUGHING UP YELLOW SPUTUM." Triage Nursing Assessment: PT. ARRIVES A&OX3, SKIN WARM AND DRY, RESP. SLIGHTLY LABORED, NO EDEMA, HEAD CONGESTED Physician History: This is a 49-year-old -[place] male who presents with a couple of days of coughing of yellowish-green sputum, headache, body aches. Patient is coughing so often that his rib and back are hurting. He is unable to sleep well over the last couple of days. He has had a low-grade fever. Timing/Duration: day(s) (2), worse Cough Quality/Degree: moderate, productive cough Possible Cause: no prior episodes Modifying Factors: Improves With: coughing Associated Symptoms: fever, cough, other (Rib and back pain from coughing so often) Allergies/Adverse Reactions: No Known Drug Allergies Allergy (Verified 09/09/22 12:34) Hx Tetanus, Diphtheria Vaccination/Date Given: Yes (< 10 YEARS) Hx Influenza Vaccination/Date Given: No Hx Pneumococcal Vaccination/Date Given: No Immunizations Up to Date: No Travel Risk - International Travel Have you traveled outside of the country in past 3 weeks: No - Emerging Infectious Disease Are you exhibiting symptoms associated with any current EIDs: Yes Symptoms: Cough: New Onset, Fever, Headaches/Body Aches/, Shortness of Breath - Past Medical History Pertinent Past Medical History: Yes Neurological History: Migraines ENT History: No Pertinent History Cardiac History: No Pertinent History Respiratory History: No Pertinent History Endocrine Medical History: No Pertinent History Musculoskeletal History: No Pertinent History GI Medical History: Other History: No Pertinent History Psycho-Social History: Bipolar Male Reproductive Disorders: No Pertinent History Other Medical History: abdominal migraines. - Past Surgical History Past Surgical History: Yes Neuro Surgical History: No Pertinent History Cardiac: No Pertinent History Respiratory: No Pertinent History Gastrointestinal: Appendectomy Genitourinary: No Pertinent History Musculoskeletal: No Pertinent History Male Surgical History: No Pertinent History Significant Family History: no pertinent family hx - Social History Smoking Status: Current every day smoker How long have you smoked: 1 PPD Exposure to second hand smoke: No Drug Use: marijuana Patient Lives Alone: No - Social Determinants of Health Will the patient participate in the screening: Declined to provide - Nursing Vital Signs Nursing Vital Signs: Initial Vital Signs Temperature 100.6 F 06/18/24 02:46 Pulse Rate 118 H 06/18/24 02:46 Respiratory Rate 18 06/18/24 02:46 Blood Pressure 158/88 06/18/24 02:46 O2 Sat by Pulse Oximetry 96 06/18/24 02:46 Pain Scale Pain Intensity 4 - Physical Exam SpO2: 96 Ordered Tests: Active Orders 24 hr Category Date Time Status CHEST 1 VIEW (PORTABLE) Stat Exams 06/18/24 03:10 Taken Medication Summary Discontinued Medications Generic Name Dose Route Start Last Admin Trade Name Freq PRN Reason Stop Dose Admin Hydrocodone Bitart/Acetaminophen 15 ml 06/18/24 03:11 06/18/24 03:19 Hydrocodone/Acetaminophen 5 Ml Udcup PO 06/18/24 03:12 15 ml STAT STA Administration Hydrocodone Bitart/Acetaminophen Confirm 06/18/24 03:13 Hydrocodone/Acetaminophen 5 Ml Udcup Administered 06/18/24 03:14 Dose 15 ml .ROUTE .STK-MED ONE Prednisone 20 mg 06/18/24 03:11 06/18/24 03:18 Prednisone 20 Mg Tablet PO 06/18/24 03:12 20 mg STAT ONE Administration Prednisone Confirm 06/18/24 03:13 Prednisone 20 Mg Tablet Administered 06/18/24 03:14 Dose 40 mg .ROUTE .STK-MED ONE - Progress Progress: improved, re-examined Air Movement: good Progress Note: 06/18/24 04:19 My medical decision making and the assignment of low complexity to this patient's medical issue today is based on review of the patient's past medical history, review the patient's medication list, reviewed patient drug allergy list, history present illness and physical findings on examination. The workup in this patient includes viral swabs and chest x-ray. Differential diagnosis includes was not limited to viral illness, upper respiratory infection, pneumonia I interpreted the preliminary chest x-ray report on this patient. I do not see any acute, emergent cardiopulmonary process I interpreted the patient's laboratory data results. Based on the laboratory data results the patient test positive for influenza A infection Blood Culture(s) Obtained: No Antibiotics given: No Counseled pt/family regarding: lab results, diagnosis, need for follow-up, rad results Medical Desision Making - Diagnostic Testing Diagnostic test were ordered, analyzed, and reviewed by me: Yes Radiological Interpretation: Interpreted by me, Teleradiologist Report - Risk of complications The pt has a mod risk of morbidity or mortality based on: Need for prescription drug management - Departure Departure Disposition: Home Clinical Impression: Influenza A H1N1 infection, Fever Condition: Stable Critical Care Time: No Referrals: MINA BELTRAN DO [Primary Care Provider] - Follow up/PCP as directed Additional Instructions: Avoid exposure to any type of smoke. Use your medications as prescribed. May add ibuprofen 600 mg orally with food for the next for 5 days to help with fever and pain control. Forms: Work/School Release Form Prescriptions: Prednisone 10 mg [Deltasone 10 mg] 10 mg PO TID #12 tablet Hydrocodone/Acetaminophen [Hydrocodone-Acetamn 7.5-325/15] 10 ml PO Q8H PRN #120 ml MDD 30 ml PRN Reason: Cough Oseltamivir 75 mg [Tamiflu 75MG Capsule] 75 mg PO BID #10 cap Albuterol 8 gm Mdi Hfa [Ventolin Hfa MDI] 8 gm IH Q4H #1 unit
[2024-06-18] MEDS ORDERED: HYDROCODONE-ACETAMIN 2.5-108/5 ML SOLUTION ONE (03:13)
[2024-06-18] MEDS ORDERED: DELTASONE 20 MG ONE (03:13)
[2024-06-18] MEDS: DELTASONE 20 MG PO ONE (03:18)
[2024-06-18] MEDS: HYDROCODONE-ACETAMIN 2.5-108/5 ML SOLUTION PO STA (03:19)
[2024-06-18 04:05] VITALS: BP 137/90
[2024-06-18 04:08] LABS: INFLUENZA B NEGATIVE (NEGATIVE); RESPIRATORY SYNCTIAL VIRUS NEGATIVE (NEGATIVE); SARS-CoV-2 Xpert Express NEGATIVE (NEGATIVE)
[2024-06-18 04:15] LABS: INFLUENZA A POSITIVE (NEGATIVE)
[2024-06-18 04:19] VITALS: O2SAT 96
[2024-06-18] MEDS: Tamiflu 75MG Capsule PO ONE (04:26)
[2024-06-18] MEDS ORDERED: Tamiflu 75MG Capsule PO ONE (04:26)
--- NOTE | 2024-06-18 08:49 | XRAY ---
Indication: Cough. Comparison: None Portable chest hyperinflated and clear. Heart not enlarged. Bony thorax intact. No acute findings.
== END 2024-06-18 04:40 | disposition home or self-care (01) ==
LOC: ED 02:39
DX: J10.1 Influenza due to other identified influenza virus with other respiratory manifestations (principal); R50.9 Fever, unspecified; R05.1 Acute cough; R51.9 Headache, unspecified; M79.10 Myalgia, unspecified site; Z79.891 Long term (current) use of opiate analgesic; Z79.52 Long term (current) use of systemic steroids; Z79.899 Other long term (current) drug therapy; Z72.0 Tobacco use
CPT/HCPCS: 0241U; 71045; 99284; A9270-GY